=== PATIENT | male | born 1955 | race Two or more races ===

== ENCOUNTER 2020-05-31 21:28 | Inpatient (IN) | payer OTHER ==
[~2020-05-31] VITALS: Ht 167.6 cm; Wt 68.0 kg
--- NOTE | 2020-05-31 21:28 | NUR ---
ED Nurse Note: Patient brought into ED by RA Papa from home c/o hyperglycemia, per patient he has been feeling unwell since friday. patient presents with an elevated oral temp of 103.4 accompanied by abdominal pain that he rates a 5/10 pain, denies any nausea, vomiting, or diarrhea just reports of pressure like pain. patient placed in a cardiac care nurse. will continue to monitor
[2020-05-31 21:30] VITALS: BP 183/84
[2020-05-31] MEDS ORDERED: Acetaminophen 500mg (ES) tab ORAL ONE (21:45)
--- NOTE | 2020-05-31 22:00 | NUR ---
ED Nurse Note: after tylenol 1 gram, patient currently presents with an oral temp of 99.2
[2020-05-31 22:08] LABS: HEMATOCRIT 40.4 % (42.0-52.0); HEMOGLOBIN 13.8 G/DL (14.2-18.0); MEAN CORPUSCULAR VOLUME 92 FL (80-99); PLATELET COUNT 54 K/UL (150-450); RED BLOOD COUNT 4.41 M/UL (4.70-6.10); WHITE BLOOD COUNT 6.8 K/UL (4.8-10.8)
[2020-05-31 22:18] LABS: INR 1.3 (0.9-1.1)
[2020-05-31 22:20] LABS: ANION GAP 11 mmol/L (5-15); BLOOD UREA NITROGEN 17 mg/dL (7-18); CALCIUM 8.9 MG/DL (8.5-10.1); CARBON DIOXIDE 22 MMOL/L (21-32); CHLORIDE 97 MMOL/L (98-107); CREATININE 1.2 MG/DL (0.55-1.30); POTASSIUM 3.9 MMOL/L (3.5-5.1); SODIUM 130 MMOL/L (136-145)
[2020-05-31] MEDS ORDERED: Azithromycin 500 MG in NS 275 ML IV ONE (22:30)
[2020-05-31] MEDS ORDERED: Piperacillin/Tazobactam 3.375 GM in NS 110 ML IVPB ONE (22:30)
--- NOTE | 2020-05-31 22:30 | Emergency Room Report ---
History of Present Illness General Chief Complaint: General Complaint Source: Patient, EMS Present Illness HPI Patient presented via EMS. Apparently he has been ill since Friday. He complains of malaise and also gassiness in his stomach. He has a history of diabetes and takes Metformin 500 mg. It is unclear as to whether he has been taking his medication as no pill bottles were found at the residence. Accu-Chek in the field was 330. Paramedics on transport noted that the patient was febrile. The patient denies nausea, vomiting or diarrhea. He denies dysuria. He denies rashes. He denies chest pain or productive cough. Unknown whether patient was exposed to Covid positive contacts. No sore throat, chest pain, palpitations, dysuria, shortness of breath, depression, anxiety, visual changes, dizziness, headache. Allergies: Coded Allergies: No Known Allergies (Unverified , 05/31/20) COVID-19 Screening Contact w/high risk pt: No Experienced COVID-19 symptoms?: No COVID-19 Testing performed [employer]: No Patient History Past Medical History: see triage record Social History: Denies: smoking Social History Narrative Lives with family Reviewed Nursing Documentation: PMH: Agreed; PSxH: Agreed Nursing Documentation-PMH Past Medical History: No History, Except For Hx Diabetes: Yes Review of Systems All Other Systems: negative except mentioned in HPI Physical Exam Vital Signs Date Time Temp Pulse Resp B/P (MAP) Pulse Ox O2 Delivery O2 Flow Rate FiO2 05/31/20 21:22 100.6 115 18 183/84 (117) 98 Room Air Sp02 EP Interpretation: reviewed, normal General Appearance: no apparent distress, GCS 15, non-toxic Head: normocephalic Eyes: bilateral eye normal inspection, bilateral eye PERRL, bilateral eye EOMI ENT: moist mucus membranes Neck: supple Respiratory: lungs clear, decreased breath sounds - Right Cardiovascular #1: tachycardia Cardiovascular #2: 2+ radial (R) Gastrointestinal: non tender, soft, no guarding, no rebound, other - increased bowel sounds Genitourinary: no CVA tenderness Musculoskeletal: back normal, normal range of motion, gait/station normal Neurologic: alert, oriented x3, grossly normal Psychiatric: mood/affect normal Skin: no rash, other - hot Medical Decision Making Diagnostic Impression: Primary Impression: Sepsis Qualified Codes: A41.9 - Sepsis, unspecified organism Additional Impressions: RLL pneumonia Qualified Codes: J18.9 - Pneumonia, unspecified organism Person under investigation for COVID-19 Apical lung scarring Rule out tuberculosis Hyperglycemia Elevated lactic acid level Pleural effusion, right ER Course Patient presents with hyperglycemia and fever. Differential includes diabetic ketoacidosis, sepsis, pneumonia, urinary tract infection, acute myocardial infarction, COVID-19 amongst others. Patient evaluated with EKG, chest x-ray and labs. Due to hyperglycemia fluid bolus administered. Also Tylenol administered for fever. Abdomen is nonsurgical. Patient placed on cardiac nurse practitioner. EKG sinus tachycardia with minimal strain pattern. No injury. CXR with RLL infiltrate and R apical scarring abdomen x-ray with. Gallstones and stents possibly in portal area. White count normal. Serum bicarbonate is normal which excludes diabetic ketoacidosis. Inflammatory markers elevated. Elevated lactate. Full bolus 30 ml/kg ordered and antibiotics. Sepsis re evaluation 2234 Covid antigen test negative. PCR test ordered. In addition because of chest x-ray Gold interferon test ordered. Patient improved with treatment. Patient signed out to Dr. Carmen for final disposition. Laboratory Tests Test 05/31/20 21:40 05/31/20 22:30 06/01/20 00:48 White Blood Count 6.8 K/UL (4.8-10.8) Red Blood Count 4.41 M/UL (4.70-6.10) L Hemoglobin 13.8 G/DL (14.2-18.0) L Hematocrit 40.4 % (42.0-52.0) L Mean Corpuscular Volume 92 FL (80-99) Mean Corpuscular Hemoglobin 31.2 PG (27.0-31.0) H Mean Corpuscular Hemoglobin Concent 34.1 G/DL (32.0-36.0) Red Cell Distribution Width 14.0 % (11.6-14.8) Platelet Count 54 K/UL (150-450) L Mean Platelet Volume 7.8 FL (6.5-10.1) Neutrophils (%) (Auto) % (45.0-75.0) Lymphocytes (%) (Auto) % (20.0-45.0) Monocytes (%) (Auto) % (1.0-10.0) Eosinophils (%) (Auto) % (0.0-3.0) Basophils (%) (Auto) % (0.0-2.0) Differential Total Cells Counted 100 Neutrophils % (Manual) 71 % (45-75) Lymphocytes % (Manual) 14 % (20-45) L Monocytes % (Manual) 4 % (1-10) Eosinophils % (Manual) 2 % (0-3) Basophils % (Manual) 0 % (0-2) Band Neutrophils 9 % (0-8) H Platelet Estimate Decreased L Platelet Morphology Normal Prothrombin Time 13.9 SEC (9.30-11.50) H Prothrombin Time INR 1.3 (0.9-1.1) H Activated Partial Thromboplast Time 31 SEC (23-33) D-Dimer 1.63 mg/L FEU (0.00-0.49) H Sodium Level 130 MMOL/L (136-145) L Potassium Level 3.9 MMOL/L (3.5-5.1) Chloride Level 97 MMOL/L (98-107) L Carbon Dioxide Level 22 MMOL/L (21-32) Anion Gap 11 mmol/L (5-15) Blood Urea Nitrogen 17 mg/dL (7-18) Creatinine 1.2 MG/DL (0.55-1.30) Estimated Glomerular Filtration Rate > 60 mL/min (>60) Glucose Level 269 MG/DL (74-106) H Lactic Acid Level 2.90 mmol/L (0.4-2.0) H Pending Calcium Level 8.9 MG/DL (8.5-10.1) Ferritin 273 NG/ML (8-388) Total Bilirubin 1.7 MG/DL (0.2-1.0) H Direct Bilirubin 0.7 MG/DL (0.0-0.3) H Aspartate Amino Transferase (AST) 40 U/L (15-37) H Alanine Aminotransferase (ALT) 26 U/L (12-78) Alkaline Phosphatase 81 U/L (46-116) Lactate Dehydrogenase 334 U/L (81-234) H Total Creatine Kinase 488 U/L (26-308) H Creatine Kinase MB < 0.5 NG/ML (0.0-3.6) Creatine Kinase MB Relative Index 0.1 Troponin I 0.020 ng/mL (0.000-0.056) C-Reactive Protein, Quantitative 13.4 mg/dL (0.00-0.90) H Pro-B-Type Natriuretic Peptide 179 pg/mL (0-125) H Total Protein 7.6 G/DL (6.4-8.2) Albumin 2.8 G/DL (3.4-5.0) L Globulin 4.8 g/dL Albumin/Globulin Ratio 0.6 (1.0-2.7) L Lipase 168 U/L (73-393) Urine Color Yellow Urine Appearance Clear Urine pH 5 (4.5-8.0) Urine Specific [place] 1.015 (1.005-1.035) Urine Protein 3+ (NEGATIVE) H Urine Glucose (UA) 4+ (NEGATIVE) H Urine Ketones Negative (NEGATIVE) Urine Blood 3+ (NEGATIVE) H Urine Nitrite Negative (NEGATIVE) Urine Bilirubin Negative (NEGATIVE) Urine Urobilinogen 1 MG/DL (0.0-1.0) H Urine Leukocyte Esterase Negative (NEGATIVE) Urine RBC 0-2 /HPF (0 - 0) H Urine WBC 0 /HPF (0 - 0) Urine Squamous Epithelial Cells None /LPF (NONE/OCC) Urine Bacteria None /HPF (NONE) Microbiology Date/Time Source Procedure Growth Status 05/31/20 21:40 Nasopharynx SARS-CoV-2 Antigen (Rapid)(ANIKA) - Final Complete EKG Diagnostic Results Rate: tachycardiac Rhythm: NSR ST Segments: no acute changes Rhythm Strip Diag. Results EP Interpretation: yes Rhythm: no PVC's, no ectopy, other - ST Chest X-Ray Diagnostic Results Chest X-Ray Diagnostic Results : Chest X-Ray Ordered: Yes # of Views/Limited/Complete: 1 View Indication: Other EP Interpretation: Yes Interpretation: no pneumothorax, other - RLL infiltrate and RUL scarring Impression: Other Electronically Signed by: Electronically signed by Benoit Kebede MD Other X-Ray Diagnostic Results Other X-Ray Diagnostic Results : # of Views/Limited Vs Complete: 2 View Indication: Other EP Interpretation: Yes Interpretation: nonspecific bowel gas, no sbo, other - gall stones, NSBGP, stent RUQ Impression: Other Electronically Signed by: Electronically signed by Benoit Kebede MD Last Vital Signs Date Time Temp Pulse Resp B/P (MAP) Pulse Ox O2 Delivery O2 Flow Rate FiO2 05/31/20 21:30 115 18 Room Air 05/31/20 21:30 103.4 183/84 98 Status: improved Disposition: ADMITTED INPATIENT Condition: Serious Referrals: NON PHYSICIAN (PCP) Benoit Kebede MD May 31, 2020 22:30
[2020-05-31 22:35] LABS: ALANINE AMINOTRANSFERASE 26 U/L (12-78); ALBUMIN 2.8 G/DL (3.4-5.0); ALBUMIN/GLOBULIN RATIO 0.6 (1.0-2.7); ALKALINE PHOSPHATASE 81 U/L (46-116); ASPARTATE AMINO TRANSFERASE 40 U/L (15-37); BILIRUBIN,TOTAL 1.7 MG/DL (0.2-1.0); CKMB < 0.5 NG/ML (0.0-3.6); CREATINE KINASE 488 U/L (26-308); FERRITIN 273 NG/ML (8-388); LACTATE DEHYDROGENASE 334 U/L (81-234)
[2020-05-31 22:39] LABS: BILIRUBIN,DIRECT 0.7 MG/DL (0.0-0.3)
[2020-05-31 23:08] LABS: APPEARANCE,URINE CLEAR; BILIRUBIN, URINE NEGATIVE (NEGATIVE); GLUCOSE, URINE (UA) 4+ (NEGATIVE); KETONES,URINE NEGATIVE (NEGATIVE); LEUKOCYTE ESTERASE ,URINE NEGATIVE (NEGATIVE); NITRITE,URINE NEGATIVE (NEGATIVE); PH,URINE 5 (4.5-8.0); PROTEIN,URINE 3+ (NEGATIVE); UROBILINOGEN,URINE 1 MG/DL (0.0-1.0)
[2020-05-31 23:15] VITALS: BP 152/73
[2020-05-31 23:26] LABS: COLOR,URINE YELLOW
[2020-06-01] VITALS (8 sets, daily range): BP systolic 147–170; BP diastolic 75–88
--- NOTE | 2020-06-01 00:47 | Emergency Room Report ---
Physical Exam Vital Signs Date Time Temp Pulse Resp B/P (MAP) Pulse Ox O2 Delivery O2 Flow Rate FiO2 05/31/20 21:22 100.6 115 18 183/84 (117) 98 Room Air Sp02 EP Interpretation: reviewed, normal Medical Decision Making Diagnostic Impression: Primary Impression: Sepsis Additional Impressions: Person under investigation for COVID-19 RLL pneumonia Qualified Codes: J18.9 - Pneumonia, unspecified organism Hyperglycemia Apical lung scarring Rule out tuberculosis History of TB (tuberculosis) ER Course I, Dr Steff Carmen, have assumed care of the patient. Initial workup, his tory, and physical performed by previous provider has been reviewed by myself and I have performed my own physical exam of the patient. Patient is a 65-year-old [place] male with past medical history of TB infection (s/p [place] 2011) [id number] diabetes brought in by ambulance for cough. Differential diagnosis includes sepsis / severe sepsis , cellulitis UTI, pneu monia , viral syndrome, gastroenteritis, emergent abdominal infection, among others. Patient was initially febrile and tachycardic, thus meeting SIRS criteria. Labs demonstrate bands of 9, CRP elevation of 13.4, lactic 2.9. CBC demonstrates thrombocytopenia. He is dehydrated with a CK of 48. There is no evidence of DKA or HHS. Bicarb is 22. UA is negative for UTI CXR demonstrates right lower lobe pneumonia with apical scarring, consistent with previous TB infection. Sepsis bundle initiated on arrival. Blood cultures, lactate drawn. Lactate was elevated , patient was given 30 cc/kg IV fluids by bolus. Empiric antibiotics were started. Patient will be admitted to the hospital for further care and evaluation. I spoke with Dr. Kruse, and reviewed the patients presentation, workup, results, and treatment. They will admit the patient for further care and evaluation, and assume care of the patient at this time. Rhythm Strip Diag. Results Rhythm Strip Time: 00:46 EP Interpretation: yes Rate: 102 Rhythm: no PVC's, no ectopy Chest X-Ray Diagnostic Results Chest X-Ray Diagnostic Results : ANNA Langford Text Chest X-Ray: Views: [ 1 ] view(s) Indication: SOB Findings: Right lower lobe pneumonia. Right apical scarring, interstitial infiltrate, no pneumothorax Impression: Pneumonia The X-ray(s) were independently viewed and interpreted contemporaneously Electronically signed by Steff sifuentes DO Reevaluation Time: 00:00 Last Vital Signs Date Time Temp Pulse Resp B/P (MAP) Pulse Ox O2 Delivery O2 Flow Rate FiO2 05/31/20 21:22 100.6 115 18 183/84 (117) 98 Room Air Status: improved Disposition: ADMITTED INPATIENT Admit Decision Time: 00:00 Condition: Serious Referrals: NON PHYSICIAN (PCP) Steff Carmen D.O. Jun 01, 2020 00:47
[2020-06-01] MEDS ORDERED: METFORMIN HCL500 M1 ORAL (00:57)
--- NOTE | 2020-06-01 01:02 | NUR ---
ED Nurse Note: oral temp of 100.4. ERMD aware and notified, will carry out meds as ordered
[2020-06-01] MEDS ORDERED: Acetaminophen 500mg (ES) tab ORAL ONE ×2 (01:05→01:15)
--- NOTE | 2020-06-01 01:40 | NUR ---
Pte in bed in comfortable position , no fever at this at this time. Will continue to monitor.
--- NOTE | 2020-06-01 04:00 | NUR ---
Pte in bed alert and stable , vital signs taken and reported . Pte remains attached to the monitor , no pain or disccomfort verbalized. No fever . Pte has being monitoring for any hypoglycemic sign. All medications were given to the patient without any adverse effect. Will continue to monitor the patient.
--- NOTE | 2020-06-01 06:00 | NUR ---
Pte in bed stable . Pte has being coughing during the shift. Pte attached to the monitor. Morning labs were done. Safety and comfort measures taken . Will continue to monitor the patient during the shift.
--- NOTE | 2020-06-01 08:00 | NUR ---
pt has completed breakfast and resting comfortably. vitals updated at this time. pt has no complaints at this time.
[2020-06-01] MEDS ORDERED: Heparin 5000 units/ml inj SUBQ SCH (09:00)
[2020-06-01] MEDS: cefTRIAXone 1 GM in D5W 55 ML IVPB SCH (09:00)
--- NOTE | 2020-06-01 09:14 | History and Physical Report ---
DATE OF ADMISSION: 05/31/2020 CHIEF COMPLAINT: Pneumonia. HISTORY OF PRESENT ILLNESS: The patient is a 65-year-old male. He has a prior history of tuberculosis, status post treatment, who presents with complaints of one week progressive cough and shortness of breath. According to the patient, he was well until a week ago when he developed worsening shortness of breath and cough. In the emergency room, his rapid COVID test was negative. Chest x-ray showed a right lower lobe infiltrate. The patient has been started on broad-spectrum IV antibiotics. He is now admitted for further evaluation and care. PAST MEDICAL HISTORY: None. PAST SURGICAL HISTORY: None. CURRENT MEDICATIONS: None. FAMILY HISTORY: None. SOCIAL HISTORY: Negative for tobacco, ethanol, or drugs. REVIEW OF SYSTEMS: GENERAL: No fevers or chills. HEENT: No headaches or visual changes. CARDIOPULMONARY: No chest pain. Positive shortness of breath and cough. GASTROINTESTINAL: No nausea or vomiting. GENITOURINARY: No urgency or frequency. MUSCULOSKELETAL: No joint pain or swelling. NEUROLOGIC: No history of seizures. PHYSICAL EXAMINATION: VITAL SIGNS: Temperature 100.4, pulse 112, respirations 16, blood pressure 163/84. GENERAL: The patient is well developed, in no apparent distress. HEART: Regular rate and rhythm. LUNGS: Clear except for diminished breath sounds at the bases. ABDOMEN: Soft, nontender, nondistended. EXTREMITIES: Without clubbing, cyanosis, or edema. LABORATORY DATA: Labs were reviewed. ASSESSMENT: This is a 65-year-old male, admitted with complaints of pneumonia. PROBLEM LIST: 1. Community-acquired pneumonia. 2. Lactic acidosis. 3. Hyponatremia. 4. Questionable history of diabetes. PLAN: IV hydration. IV antibiotics. Follow up pending cultures. Check an A1c. We will monitor blood sugars. Repeat COVID PCR will be ordered. Sudeep Kruse M.D. DR: GEOVANY JOB#: [id number] CC:
--- NOTE | 2020-06-01 12:18 | Diagnostic Imaging Report ---
EXAM: CT CT Chest no Contrast CLINICAL HISTORY: Cough. TECHNIQUE: Axial images obtained through the chest without contrast. All CT scans at this facility are performed using dose modulation techniques as appropriate to a performed exam including the following: automated exposure control with adjustment of the mA and/or kV according to patient size. RADIATION DOSE: CTDIvol: 5.5 mGy DLP: 205.6 mGy-cm Dose information generated by the CT scanner is available in PACS. COMPARISON: Chest x-ray 05/31/2020 FINDINGS: Study limited due to motion artifact. There is redemonstration of an area of bronchiectasis and scarring in the right upper lobe. Adjacent pleural thickening noted. Mild hazy density is noted posterior left lung base, atelectasis versus early infiltrate. There appears to be a chronic crescentic pleural collection noted in the right posterior lateral lung base with dense rim calcifications. This may be related to an old hemothorax. Cardiac and mediastinal structures are within normal limits. There is no pathologic size adenopathy. Images through the upper abdomen remarkable for cirrhotic liver with apparent TIPS shunt in place. There is splenomegaly. IMPRESSION: RIGHT UPPER LOBE SCARRING AND BRONCHIECTASIS WITH ADJACENT PLEURAL THICKENING. CRESCENTIC PLEURAL COLLECTION WITH RIM CALCIFICATION IN THE POSTERIOR LATERAL RIGHT LUNG BASE. THIS IS LIKELY FROM AN OLD HEMOTHORAX. MILD PERIPHERAL HAZY DENSITIES POSTERIOR LEFT LUNG BASE. ATELECTASIS VERSUS EARLY INFILTRATE. CIRRHOTIC LIVER WITH TIPS SHUNT. SPLENOMEGALY.
--- NOTE | 2020-06-01 13:08 | Diagnostic Imaging Report ---
EXAM: XRAY Abdomen 1v HISTORY: Reason For Exam: ABD PAIN COMPARISON: None. TECHNIQUE: Frontal view of the abdomen obtained. FINDINGS: There is a nonobstructed bowel gas pattern. There is a tips shunt in the right upper quadrant. Multiple gallstones noted. There is no sign of free air. Pleural calcifications noted right lung base. IMPRESSION: GALLSTONES. TIPS SHUNT IN THE RIGHT UPPER QUADRANT.
--- NOTE | 2020-06-01 13:10 | Diagnostic Imaging Report ---
Procedure: XRAY Chest 1v Reason for study: Shortness of breath. Comparison films: None. FINDINGS: A single one view chest is obtained. Vascularity is normal. There is right upper lobe scarring, bronchiectasis and pleural thickening. Hazy densities right lung base also noted. Cardiac and mediastinal silhouette are within normal limits. Right-sided pleural calcifications demonstrated likely related to old hemothorax. The bony thorax appear unremarkable. IMPRESSION: Postovulatory changes of the right lung with right upper lobe scarring, bronchiectasis and pleural thickening. Pleural calcifications right lung base suggestive of prior hemothorax.
--- NOTE | 2020-06-01 13:43 | NUR ---
pt is resting comfortably, vital signs updated at this time. charge nurse notified of need for lunch tray.
--- NOTE | 2020-06-01 16:56 | NUR ---
updated vitals pt spiked a temp, 650 of tylenol given
--- NOTE | 2020-06-01 19:16 | Cardiology Report ---
APPROVED REPORT EKG Measurement Heart [id number] AL [id number] [id number] <Conclusion> Sinus tachycardia Left ventricular hypertrophy with repolarization abnormality Abnormal ECG
--- NOTE | 2020-06-01 20:40 | NUR ---
TRANSFER TO FLOOR: Patient transferred to Telemetry as ordered, per Dr. Kruse. Report given to GIN Salamanca. patient transferred to floor accompanied by RN
[2020-06-01] MEDS: Azithromycin 250mg tab ORAL SCH (20:47)
--- NOTE | 2020-06-01 20:50 | NUR ---
NURSE NOTES: Patient received from GIN Montelongo. Patient is transferred to floor with no issues. Patient is awake, alert and oriented x 4. Patient is on room air with no signs of acute respiratory distress noted. Patient has no complaints as of the moment. Patient has a right 18 gauge IV on his right AC with NS running at 75 ml/hr. Discussed belongings with the RN. Bed is in the lowest position and locked, call light within reach. Will continue to monitor.
--- NOTE | 2020-06-01 23:40 | NUR ---
NURSE NOTES: Contacted and notified Dr. Bernard regarding patient's episode of sinus tachycardia with a heart rate of 140s to 150s. EKG performed. Awaiting for call back.
[2020-06-02] VITALS: BP 151/89
[2020-06-02 04:53] VITALS: BP 141/78
[2020-06-02 06:58] LABS: ANION GAP 8 mmol/L (5-15); BLOOD UREA NITROGEN 13 mg/dL (7-18); CALCIUM 7.1 MG/DL (8.5-10.1); CARBON DIOXIDE 26 MMOL/L (21-32); CHLORIDE 104 MMOL/L (98-107); CREATININE 1.1 MG/DL (0.55-1.30); POTASSIUM 3.1 MMOL/L (3.5-5.1); SODIUM 138 MMOL/L (136-145)
[2020-06-02 07:08] LABS: ALANINE AMINOTRANSFERASE 19 U/L (12-78); ALBUMIN 2.1 G/DL (3.4-5.0); ALBUMIN/GLOBULIN RATIO 0.5 (1.0-2.7); ALKALINE PHOSPHATASE 65 U/L (46-116); ASPARTATE AMINO TRANSFERASE 36 U/L (15-37); BILIRUBIN,TOTAL 1.5 MG/DL (0.2-1.0)
--- NOTE | 2020-06-02 07:22 | NUR ---
NURSE HAND-OFF REPORT: Important Events on Shift:[Patient had a sinus tachycardia episode, heart rate in 140-150s. Notified Dr. Bernard, Tylenol ordered due to fever per Dr. Bernard. Now back to SR. ] Patient Status: [Stable] Diet: [Regular diet] Pending Orders: [] Pending Results/Labs:[] Pending MD notification:[] Latest Vital Signs: Temperature 98.3 , Pulse 96 , B/P 141 /78 , Respiratory Rate 20 , O2 SAT 98 , Room Air, O2 Flow Rate . Vital Sign Comment: [] EKG Rhythm: Sinus Rhythm Rhythm change?: Y MD Notified?: N - MD Response: Latest Cheung Fall Score: 30 Fall Risk: Medium Risk Safety Measures: Call light Within Reach, Bed Alarm Zone 1, Side Rails Side Rails x2, Bed position Low and Locked. Fall Precautions: Patient Fall Education Report given to [GIN Moraes].
[2020-06-02 07:33] LABS: BILIRUBIN,DIRECT 0.5 MG/DL (0.0-0.3)
[2020-06-02 08:00] VITALS: BP 183/100
[2020-06-02 10:11] LABS: HEMOGLOBIN 13.8 G/DL (14.2-18.0); MEAN CORPUSCULAR VOLUME 89 FL (80-99); PLATELET COUNT 60 K/UL (150-450); RED BLOOD COUNT 4.47 M/UL (4.70-6.10); WHITE BLOOD COUNT 8.1 K/UL (4.8-10.8)
[2020-06-02] MEDS: cefTRIAXone 1 GM in D5W 55 ML IVPB SCH (10:29)
[2020-06-02 12:18] VITALS: BP 121/67
--- NOTE | 2020-06-02 14:16 | General Progress Note ---
Subjective ROS Limited/Unobtainable: No Constitutional: Reports: malaise, weakness HEENT: Reports: no symptoms Cardiovascular: Reports: no symptoms Respiratory: Reports: cough, shortness of breath Gastrointestinal/Abdominal: Reports: no symptoms Genitourinary: Reports: no symptoms Neurologic/Psychiatric: Reports: no symptoms Endocrine: Reports: no symptoms Hematologic/Lymphatic: Reports: no symptoms Allergies: Coded Allergies: No Known Allergies (Unverified , 05/31/20) All Systems: reviewed and negative except above Subjective No new complaints. Stable on oxygen. Denies chest pain or shortness of breath. Covid PCR pending. Remains IV antibiotics. CT noted. Has scarring and a questionable left basilar infiltrate Objective Last 24 Hour Vital Signs Date Time Temp Pulse Resp B/P (MAP) Pulse Ox O2 Delivery O2 Flow Rate FiO2 06/02/20 12:47 103 06/02/20 12:18 97.9 103 20 121/67 (85) 98 06/02/20 10:25 184/99 06/02/20 10:06 97.9 06/02/20 08:00 102.9 120 20 183/100 (127) 98 06/02/20 08:00 Room Air 06/02/20 08:00 105 06/02/20 04:53 98.3 96 20 141/78 (99) 98 06/02/20 04:00 99 06/02/20 00:00 142 06/02/20 00:00 100.0 129 20 151/89 (109) 98 06/01/20 21:00 Room Air 06/01/20 20:40 100.2 103 18 134/82 99 Room Air 06/01/20 20:00 106 06/01/20 20:00 98.4 100 24 158/76 (103) 100 06/01/20 19:58 100.2 06/01/20 19:02 Room Air 06/01/20 18:09 101.0 06/01/20 17:00 102.0 122 18 170/80 99 Room Air 06/01/20 14:33 99.8 120 18 167/77 98 Room Air Intake and Output 06/01/20 06/02/20 18:59 06:59 Intake Total 3120 ml Output Total 600 ml Balance 2520 ml Intake Oral 120 ml IV Total 3000 ml Output Urine Total 600 ml # Voids 5 # Bowel Movements 1 Laboratory Tests 06/02/20 05:48: Sodium Level 138, Potassium Level 3.1L, Chloride Level 104, Carbon Dioxide Level 26, Anion Gap 8, Blood Urea Nitrogen 13, Creatinine 1.1, Estimat Glomerular Filtration Rate > 60, Glucose Level 121#H, Calcium Level 7.1#L, Total Bilirubin 1.5H, Direct Bilirubin 0.5H, Aspartate Amino Transf (AST/SGOT) 36, Alanine Aminotransferase (ALT/SGPT) 19, Alkaline Phosphatase 65, Total Protein 6.1L, Albumin 2.1L, Globulin 4.0, Albumin/Globulin Ratio 0.5L 06/02/20 09:50: White Blood Count 8.1, Red Blood Count 4.47L, Hemoglobin 13.8L, Hematocrit 40.0L , Mean Corpuscular Volume 89, Mean Corpuscular Hemoglobin 30.9, Mean Corpuscular Hemoglobin Concent 34.5, Red Cell Distribution Width 14.0, Platelet Count 60L, Mean Platelet Volume 10.0, Neutrophils (%) (Auto) , Lymphocytes (%) (Auto) , Monocytes (%) (Auto) , Eosinophils (%) (Auto) , Basophils (%) (Auto) , Differential Total Cells Counted 100, Neutrophils % (Manual) 68, Lymphocytes % (Manual) 15L, Monocytes % (Manual) 5, Eosinophils % (Manual) 9H, Basophils % (M anual) 0, Band Neutrophils 3, Platelet Estimate DecreasedL, Platelet Morphology Normal, Anisocytosis 1+ Height (Feet): 5 Height (Inches): 6.00 Weight (Pounds): 150 General Appearance: WD/WN Cardiovascular: normal peripheral pulses, normal rate, regular rhythm Respiratory/Chest: chest wall non-tender, lungs clear, normal breath sounds, no respiratory distress Abdomen: normal bowel sounds, non tender, soft Edema: no edema noted Leg (L), no edema noted Leg (R) Assessment/Plan Problem List: (1) Pleural effusion, right ICD Codes: J90 - Pleural effusion, not elsewhere classified SNOMED: 54461399 (2) History of TB (tuberculosis) ICD Codes: Z86.11 - Personal history of tuberculosis SNOMED: 410072499 (3) Apical lung scarring ICD Codes: J98.4 - Other disorders of lung SNOMED: 41918038 (4) RLL pneumonia ICD Codes: J18.9 - Pneumonia, unspecified organism SNOMED: 141700558 Qualifiers: Qualified Codes: J18.9 - Pneumonia, unspecified organism (5) Person under investigation for COVID-19 ICD Codes: Z20.822 - Contact with and (suspected) exposure to COVID-19 SNOMED: 377611512 (6) Sepsis ICD Codes: A41.9 - Sepsis, unspecified organism SNOMED: 37518421 Qualifiers: Qualified Codes: A41.9 - Sepsis, unspecified organism Status: stable Assessment/Plan: Continue IV antibiotics Follow-up pending cultures Wean O2 Await Covid PCR Discharge planning tomorrow if cinically improved Sudeep Kruse MD Jun 02, 2020 14:16
[2020-06-02 17:00] VITALS: BP 136/94
--- NOTE | 2020-06-02 17:02 | NUR ---
INSURANCE CLINICALS FAXED TO [facility] & [phone]
--- NOTE | 2020-06-02 17:07 | NUR ---
NURSE NOTES: supply tech notified nurse of heart rate in the 160s. Nurse went in pt room to find pt standing, having bm on floor, and his entire body shaking vigorously. Once pt in bed. Nurse noticed pt somewhat confused with simple commands. BP 220/108, temp 101.9, and heart rate still in 150s at this point. PRN tylenol given and clonodine given while Primary physician was contacted. Orders were put in. EKG done showing sinus tach.
--- NOTE | 2020-06-02 19:51 | NUR ---
NURSE NOTES: Patient received from GIN Moraes. Patient is awake, alert and oriented x 4. Patient is very talkative, no complaints as of the moment. Patient noted to have no IV line inserted and no fluids running, will insert new IV line. Patient is in room air with no signs of acute respiratory distress noted. Bedside commode in bed. Bed is in the lowest position and locked, call light within reach. Will continue to monitor.
[2020-06-02 20:00] VITALS: BP 126/74
[2020-06-02] MEDS: Azithromycin 250mg tab ORAL SCH (21:15)
[2020-06-03] VITALS: BP 105/57
--- NOTE | 2020-06-03 01:50 | NUR ---
NURSE NOTES: Patient multiple bowel movement of loose stools. Stool collected for C. diff and fecal occult blood test. Stool has been sample sent down to the lab.
[2020-06-03 04:00] VITALS: BP 110/54
--- NOTE | 2020-06-03 07:25 | NUR ---
NURSE NOTES: Patient received from GIN Catalan. Patient is awake, alert and oriented x 4. Able to follow and understand Hungarian. speaks tagalog. ON RA and sating >93%. PIV access patent and intact. no signs of acute cardio- respiratory distress noted. NO c/o pain/discomfort noted. Bedside commode available. Bed is in the lowest position and locked, alarm engaged and siderails are upx3. call light within reach. Will continue to monitor.
--- NOTE | 2020-06-03 07:40 | NUR ---
NURSE HAND-OFF REPORT: Important Events on Shift:[Patient had bowel movement six time. Sent stool cultures in lab. Fecal occult is positive, Dr. Kruse is notified and aware.] Patient Status: [Stable] Diet: [Regular diet] Pending Orders: [] Pending Results/Labs:[] Pending MD notification:[] Latest Vital Signs: Temperature 98.0 , Pulse 100 , B/P 110 /54 , Respiratory Rate 18 , O2 SAT 98 , Room Air, O2 Flow Rate . Vital Sign Comment: [] EKG Rhythm: Sinus Tachycardia Rhythm change?: Y MD Notified?: N - MD Response: Latest Cheung Fall Score: 30 Fall Risk: Medium Risk Safety Measures: Call light Within Reach, Bed Alarm Zone 1, Side Rails Side Rails x2, Bed position Low and Locked. Fall Precautions: Patient Fall Education Report given to [GIN Catalan].
--- NOTE | 2020-06-03 08:00 | NUR ---
Patient had an episode of Rapid A-Fib w/ RVR rate 165, awake alert, denies chest pain, Dr. Kruse made aware. no Cardio consult yet.
[2020-06-03 08:42] LABS: HEMATOCRIT 37.9 % (42.0-52.0); HEMOGLOBIN 12.9 G/DL (14.2-18.0); MEAN CORPUSCULAR VOLUME 91 FL (80-99); PLATELET COUNT 56 K/UL (150-450); RED BLOOD COUNT 4.19 M/UL (4.70-6.10); RED CELL DISTRIBUTION WIDTH 13.8 % (11.6-14.8); WHITE BLOOD COUNT 9.3 K/UL (4.8-10.8)
[2020-06-03 08:59] VITALS: BP 130/68
[2020-06-03 09:07] LABS: ALANINE AMINOTRANSFERASE 23 U/L (12-78); ALBUMIN 2.1 G/DL (3.4-5.0); ALBUMIN/GLOBULIN RATIO 0.5 (1.0-2.7); ALKALINE PHOSPHATASE 77 U/L (46-116); ANION GAP 9 mmol/L (5-15); ASPARTATE AMINO TRANSFERASE 35 U/L (15-37); BILIRUBIN,TOTAL 1.6 MG/DL (0.2-1.0); BLOOD UREA NITROGEN 18 mg/dL (7-18); CALCIUM 6.9 MG/DL (8.5-10.1); CARBON DIOXIDE 23 MMOL/L (21-32); CHLORIDE 104 MMOL/L (98-107); CREATININE 1.2 MG/DL (0.55-1.30); POTASSIUM 3.6 MMOL/L (3.5-5.1); SODIUM 136 MMOL/L (136-145)
[2020-06-03 09:08] LABS: BILIRUBIN,DIRECT 0.6 MG/DL (0.0-0.3)
--- NOTE | 2020-06-03 09:36 | NUR ---
CASE MANAGEMENT:REVIEW 06/03/20 SI: SEPSIS. PNEUMONIA. PUI H/O TB. COVID NEGATIVE 98.6 109 18 130/68 99% ON RA H/H-12.9/37.9 PLT-56 GLUCOSE+244 CA-6.9 IS: IV ROCEPHIN Q24 IVF@125/HR AZITHROMYCIN PO QD LOPRESSOR PO Q12 PEPCID PO QD : TELEMETRY STATUS DCP: FROM HOME
[2020-06-03] MEDS: cefTRIAXone 1 GM in D5W 55 ML IVPB SCH (09:59)
--- NOTE | 2020-06-03 11:39 | NUR ---
NURSE NOTES: INFORMED DR SILVA REGARDING DIET; PATIENT HAS HISTORY OF DM AND ADMITTED WITH HYPERGLYCEMIA AND NO ACCUCHECKS AND SLIDING SCALE. PATIENT HAS MULTIPLE DIARRHEA. AWAITING FOR A RESPONSE FROM PMD. WILL CONT TO MONITOR. Addendum: 06/03/20 at 1158 by KHADIJAH LUQUE LVN NEW ORDER OBTAINED FOR ANTIDIARRHEAL. WILL CONT TO MONITOR
[2020-06-03] MEDS ORDERED: Lomotil 2.5mg tab ORAL PRN (11:45)
[2020-06-03 11:48] VITALS: BP 150/99
--- NOTE | 2020-06-03 13:55 | General Progress Note ---
Subjective ROS Limited/Unobtainable: No Constitutional: Reports: malaise, weakness HEENT: Reports: no symptoms Cardiovascular: Reports: no symptoms Respiratory: Reports: cough, shortness of breath Gastrointestinal/Abdominal: Reports: no symptoms Genitourinary: Reports: no symptoms Neurologic/Psychiatric: Reports: no symptoms Endocrine: Reports: no symptoms Hematologic/Lymphatic: Reports: no symptoms Allergies: Coded Allergies: No Known Allergies (Unverified , 05/31/20) All Systems: reviewed and negative except above Subjective no change. decrease cough. +diarrhea. intermittent svt. Objective Last 24 Hour Vital Signs Date Time Temp Pulse Resp B/P (MAP) Pulse Ox O2 Delivery O2 Flow Rate FiO2 06/03/20 12:13 114 06/03/20 11:48 98.6 109 20 150/99 (116) 98 06/03/20 09:18 Room Air 06/03/20 08:59 98.6 109 18 130/68 (88) 99 108 06/03/20 08:16 108 130/68 06/03/20 08:00 109 06/03/20 04:00 111 06/03/20 04:00 98.0 100 18 110/54 (72) 98 06/03/20 00:00 82 06/03/20 00:00 98.2 82 20 105/57 (73) 98 06/02/20 21:15 105 126/74 06/02/20 21:00 Room Air 06/02/20 20:00 99.7 105 18 126/74 (91) 98 06/02/20 20:00 104 06/02/20 18:55 Room Air 06/02/20 17:00 99.7 135 20 136/94 (108) 98 06/02/20 16:45 134 136/94 06/02/20 16:34 208/120 06/02/20 16:00 124 Intake and Output 06/02/20 06/03/20 19:00 07:00 Intake Total 600 ml 440 ml Output Total 600 ml 600 ml Balance 0 ml -160 ml Intake Oral 600 ml 440 ml Output Urine Total 600 ml 600 ml # Bowel Movements 7 7 Laboratory Tests 06/03/20 01:45: Stool Occult Blood Positive 06/03/20 08:20: White Blood Count 9.3, Red Blood Count 4.19L, Hemoglobin 12.9L, Hematocrit 37.9L , Mean Corpuscular Volume 91, Mean Corpuscular Hemoglobin 30.7, Mean Corpuscular Hemoglobin Concent 33.9, Red Cell Distribution Width 13.8, Platelet Count 56L, Mean Platelet Volume 10.2H, Neutrophils (%) (Auto) , Lymphocytes (%) (Auto) , Monocytes (%) (Auto) , Eosinophils (%) (Auto) , Basophils (%) (Auto) , Differential Total Cells Counted 100, Neutrophils % (Manual) 77H, Lymphocytes % (Manual) 7L, Monocytes % (Manual) 8, Eosinophils % (Manual) 8H, Basophils % (Manual) 0, Band Neutrophils 0, Platelet Estimate DecreasedL, Platelet Morphology Normal, Red Blood Cell Morphology Normal, Sodium Level 136, Potassium Level 3.6, Chloride Level 104, Carbon Dioxide Level 23, Anion Gap 9, Blood Urea Nitrogen 18, Creatinine 1.2, Estimat Glomerular Filtration Rate > 60, Glucose Level 244#H, Calcium Level 6.9L, Total Bilirubin 1.6H, Direct Bilirubin 0.6H, Aspartate Amino Transf (AST/SGOT) 35, Alanine Aminotransferase (ALT/SGPT) 23, Alkaline Phosphatase 77, Total Protein 6.1L, Albumin 2.1L, Globulin 4.0, Albumin/Globulin Ratio 0.5L Height (Feet): 5 Height (Inches): 6.00 Weight (Pounds): 150 Objective General Appearance: WD/WN Cardiovascular: normal peripheral pulses, normal rate, regular rhythm Respiratory/Chest: chest wall non-tender, lungs clear, normal breath sounds, no respiratory distress Abdomen: normal bowel sounds, non tender, soft Edema: no edema noted Leg (L), no edema noted Leg (R) Assessment/Plan Problem List: (1) Pleural effusion, right ICD Codes: J90 - Pleural effusion, not elsewhere classified SNOMED: 71171462 (2) History of TB (tuberculosis) ICD Codes: Z86.11 - Personal history of tuberculosis SNOMED: 138989226 (3) Apical lung scarring ICD Codes: J98.4 - Other disorders of lung SNOMED: 05731480 (4) RLL pneumonia ICD Codes: J18.9 - Pneumonia, unspecified organism SNOMED: 172342101 Qualifiers: Qualified Codes: J18.9 - Pneumonia, unspecified organism (5) Person under investigation for COVID-19 ICD Codes: Z20.822 - Contact with and (suspected) exposure to COVID-19 SNOMED: 691630494 (6) Sepsis ICD Codes: A41.9 - Sepsis, unspecified organism SNOMED: 86971266 Qualifiers: Qualified Codes: A41.9 - Sepsis, unspecified organism Status: stable Assessment/Plan: Continue IV antibiotics Follow-up pending cultures Wean O2 titrate bp rx/cardiac rx reepat cxr Discharge planning tomorrow if cinically improved Sudeep Kruse MD Jun 03, 2020 13:55
[2020-06-03 15:57] VITALS: BP 129/69
--- NOTE | 2020-06-03 16:42 | NUR ---
NURSE NOTES: administered tylenol 650mg for temp 100.2. will cont to monitor.
[2020-06-03] MEDS ORDERED: Vancomycin 1gm/D5W 275ml IVPB ONE ×2 (18:00)
--- NOTE | 2020-06-03 18:56 | NUR ---
NURSE HAND-OFF REPORT: Important Events on Shift:[medicated with tylenol for fever. no s/s of allergies for vanco] Patient Status: [calm and comfortable] Diet: [reg] Pending Orders: [] Pending Results/Labs:[] Pending MD notification:[] Latest Vital Signs: Temperature 99.1 , Pulse 108 , B/P 129 /69 , Respiratory Rate 20 , O2 SAT 98 , Room Air, O2 Flow Rate . Vital Sign Comment: [] EKG Rhythm: Sinus Tachycardia Rhythm change?: N MD Notified?: N - MD Response: Latest Cheung Fall Score: 30 Fall Risk: Medium Risk Safety Measures: Call light Within Reach, Bed Alarm Zone 2, Side Rails Side Rails x3, Bed position Low and Locked. Fall Precautions: Patient Fall Education Report given to [gho].
--- NOTE | 2020-06-03 19:30 | NUR ---
NURSE NOTES: Receive a report from SEJAL Marquez. Pt is awake and alert. No acute distress noted. No SOB noted. Denies pain. No chilling or febrile sensation. IV is running as ordered with ATB via left wrist. No dizziness noted. Provide fall precautions. Call light within reach. Will continue to monitor.
[2020-06-03 20:00] VITALS: BP 119/72
[2020-06-03] MEDS: Azithromycin 250mg tab ORAL SCH (21:03)
[2020-06-03] MEDS: Piperacillin/Tazobactam 3.375 GM in NS 110 ML IVPB SCH (21:32)
--- NOTE | 2020-06-03 23:45 | NUR ---
NURSE NOTES: DOCUMENT CONTROL MANAGER reported pt's SOB and wheezing. Spo2 90% in RA. Alert but noted SOB with RR 28bmp with chilling sensation. No elevated temperature noted. Call Dr. Kruse's on-call and left a message.
[2020-06-04] VITALS (7 sets, daily range): BP systolic 102–150; BP diastolic 57–92
--- NOTE | 2020-06-04 00:30 | NUR ---
NURSE NOTES: Waiting for a call back and call RT to check pt. Recommended to put om Bi-pap. Left a message to On-call and Dr. Kruse for further orders.
[2020-06-04] MEDS ORDERED: Ipratropium 0.02% Inh Soln 2.5ml UD HHN SCH (01:00)
--- NOTE | 2020-06-04 01:00 | NUR ---
NURSE NOTES: Receive a call back from Dr. Bernard. Update pt's conditions regarding SOB, Spo2, wheezing. Receive order of Breathing treatment of Atrovent 0.5mg Inhalation once and will follow up later. Call RT for new order.
--- NOTE | 2020-06-04 01:30 | NUR ---
NURSE NOTES: Breathing treatment is done. Pt is awake and alert. Still noted wheezing and SOB. Spo2 94% with O2 4L NC and HR 126 bmp. Will continue to monitor closely.
--- NOTE | 2020-06-04 02:00 | NUR ---
NURSE NOTES: RR got slower down as 28 but pt says that he feels the same. Noted decreased wheezing but sill noted bilateral. Spo2 94% with O2 4L NC. Will continue to monitor.
--- NOTE | 2020-06-04 02:10 | NUR ---
NURSE NOTES: Receive a call from Dr. Bernard. Update pt's conditions and variable HR as 116 to 140 bmp as sinus tachycardia.
--- NOTE | 2020-06-04 03:15 | NUR ---
NURSE NOTES: Receive a call from Dr. Bernard update pt's condition including HR varies from 116 to 170 bmp. Receive new orders of Chest X-ray and Lasix 20mg IVS. Order noted and carried out. MD aware of discontinued fluid at this time. Will continue to monitor.
--- NOTE | 2020-06-04 05:10 | NUR ---
NURSE NOTES: Receive ABG order from Dr. Kruse. Order noted and carried out. Call RT for new order. Will continue to follow up.
--- NOTE | 2020-06-04 05:40 | NUR ---
NURSE NOTES: Update ABG result and receive new order. Order noted and carried out.
--- NOTE | 2020-06-04 05:42 | Diagnostic Imaging Report ---
EXAM: XR Chest, 1 View CLINICAL HISTORY: SOB TECHNIQUE: Frontal view of the chest. COMPARISON: Chest CT 06/01/20, chest x-ray 05/31/20 FINDINGS: Lungs: Overall lung expansion within normal limits. There appears to be increasing consolidation at the lower lung howard bilaterally right more so than left. Irregular opacity right upper lobe and adjacent pleural thickening appear similar. Mild interstitial prominence. Lungs are otherwise clear. Pleural space: peripherally calcified pleural fluid collection lateral right base is unchanged. No pneumothorax. Heart: Unremarkable. No cardiomegaly. Mediastinum: Unremarkable. Bones/joints: Unremarkable. IMPRESSION: Progressive pulmonary consolidation lower lobes.
[2020-06-04] MEDS ORDERED: Vancomycin 750mg/NS 275ml IVPB SCH ×2 (06:00)
[2020-06-04] MEDS: Piperacillin/Tazobactam 3.375 GM in NS 110 ML IVPB SCH ×3 (06:30→23:56)
--- NOTE | 2020-06-04 06:47 | NUR ---
NURSE HAND-OFF REPORT: Important Events on Shift: SOB w/ wheezing. New orders carried out. On O2 4L via NC. Patient Status: [] Diet: [regular] Pending Orders: [] Pending Results/Labs:[] Pending MD notification:[] Latest Vital Signs: Temperature 97.9 , Pulse 112 , B/P 115 /66 , Respiratory Rate 28 , O2 SAT 90 , Room Air, O2 Flow Rate 2.0 . Vital Sign Comment: [] EKG Rhythm: Sinus Tachycardia Rhythm change?: N MD Notified?: N - MD Response: Latest Cheung Fall Score: 45 Fall Risk: High Risk Safety Measures: Call light Within Reach, Bed Alarm Zone 1, Side Rails Side Rails x3, Bed position Low and Locked. Fall Precautions: Yellow Socks Patient Fall Education
--- NOTE | 2020-06-04 07:30 | NUR ---
NURSE NOTES: Given report to GIN Roper. Round is made. Seen by Dr. Kruse and aware of DM history.
--- NOTE | 2020-06-04 07:44 | NUR ---
NURSE NOTES: assumed care for pt at 0730. pt is in bed and eating breakfast, on continuous market specialist and 4L NC saturating at 96%. pt has no complaints of SOB or cough upon assessment. L 18g FA patent and flushes. previous nurse endorses that there will be orders placed for hyperglycemic control. bed is locked and in lowest position, call light within reach.
[2020-06-04] MEDS ORDERED: Tubing IV Secondary IV ONE (09:54)
[2020-06-04] MEDS ORDERED: NS 275ml ONE (09:54)
[2020-06-04] MEDS ORDERED: GLIMEPIRIDE2 MG ORAL (11:42)
[2020-06-04] MEDS ORDERED: GLUCOPHAGE1000 MG ORAL (11:42)
[2020-06-04] MEDS ORDERED: BENAZEPRIL HCL10 MG ORAL (11:42)
--- NOTE | 2020-06-04 13:08 | General Progress Note ---
Subjective ROS Limited/Unobtainable: No Constitutional: Reports: malaise, weakness HEENT: Reports: no symptoms Cardiovascular: Reports: no symptoms Respiratory: Reports: cough Gastrointestinal/Abdominal: Reports: no symptoms Genitourinary: Reports: no symptoms Neurologic/Psychiatric: Reports: no symptoms Endocrine: Reports: no symptoms Hematologic/Lymphatic: Reports: no symptoms Allergies: Coded Allergies: No Known Allergies (Unverified , 05/31/20) All Systems: reviewed and negative except above Subjective Still running intermittent fevers and shortness of breath. Also having. No new complaints. IV's broadened yesterday. Objective Last 24 Hour Vital Signs Date Time Temp Pulse Resp B/P (MAP) Pulse Ox O2 Delivery O2 Flow Rate FiO2 06/04/20 09:49 97.4 89 18 136/63 (87) 95 06/04/20 09:15 108 122/74 06/04/20 09:00 Room Air 06/04/20 08:00 98.7 108 28 122/74 (90) 98 06/04/20 08:00 113 06/04/20 04:00 112 06/04/20 04:00 97.9 112 28 115/66 (82) 90 06/04/20 01:22 94 Nasal Cannula 2.0 06/04/20 01:18 121 20 97 Nasal Cannula 2.0 28 120 20 95 06/04/20 01:17 120 18 95 Nasal Cannula 2.0 06/04/20 00:30 126 06/04/20 00:00 116 06/04/20 00:00 97.7 118 141/92 (108) 90 06/03/20 21:04 103 119/72 06/03/20 21:00 Room Air 06/03/20 20:00 103 06/03/20 20:00 98.1 103 18 119/72 (88) 97 06/03/20 17:04 99.1 06/03/20 17:04 99.1 06/03/20 16:00 108 06/03/20 15:57 100.2 114 20 129/69 (89) 98 Intake and Output 06/03/20 06/04/20 19:00 07:00 Intake Total 2158.708 ml 150 ml Output Total 250 ml 350 ml Balance 1908.708 ml -200 ml Intake Oral 490 ml 150 ml IV Total 1668.708 ml Output Urine Total 250 ml 350 ml # Voids 1 # Bowel Movements 4 1 Laboratory Tests 06/04/20 05:12: Arterial Blood pH 7.429, Arterial Blood Partial Pressure CO2 28.7L, Arterial Blood Partial Pressure O2 79.9, Arterial Blood HCO3 18.6L, Arterial Blood Oxygen Saturation 95.6, Arterial Blood Base Excess -4.4L, Kalin Test Positive Height (Feet): 5 Height (Inches): 6.00 Weight (Pounds): 150 Objective General Appearance: WD/WN Cardiovascular: normal peripheral pulses, normal rate, regular rhythm Respiratory/Chest: chest wall non-tender, lungs clear, normal breath sounds, no respiratory distress Abdomen: normal bowel sounds, non tender, soft Edema: no edema noted Leg (L), no edema noted Leg (R) Assessment/Plan Problem List: (1) Pleural effusion, right ICD Codes: J90 - Pleural effusion, not elsewhere classified SNOMED: 12102870 (2) History of TB (tuberculosis) ICD Codes: Z86.11 - Personal history of tuberculosis SNOMED: 258923287 (3) Apical lung scarring ICD Codes: J98.4 - Other disorders of lung SNOMED: 89565449 (4) RLL pneumonia ICD Codes: J18.9 - Pneumonia, unspecified organism SNOMED: 794665065 Qualifiers: Qualified Codes: J18.9 - Pneumonia, unspecified organism (5) Person under investigation for COVID-19 ICD Codes: Z20.822 - Contact with and (suspected) exposure to COVID-19 SNOMED: 895734542 (6) Sepsis ICD Codes: A41.9 - Sepsis, unspecified organism SNOMED: 53635913 Qualifiers: Qualified Codes: A41.9 - Sepsis, unspecified organism Status: stable Assessment/Plan: Continue IV antibiotics Follow-up pending cultures Wean O2 titrate bp rx/cardiac rx reepat cxr Add Accu-Cheks and sliding scale coverage Check A1c Sudeep Kruse MD Jun 04, 2020 13:08
[2020-06-04] MEDS: NovoLOG Insulin Flexpen SUBQ SCH ×2 (16:44→21:16)
--- NOTE | 2020-06-04 17:01 | NUR ---
NURSE NOTES: pt was requesting blankets and stated he was cold. DEVELOPMENT CHEMIST reported temperature of 101.2. pulled PRN medication to give, rechecked temperature and temperature was 98.5. did not give meds. pt denied feeling sick or unwell. denied chills.
--- NOTE | 2020-06-04 18:02 | NUR ---
NURSE NOTES: person to notify: Kaleb Webers: [phone] Adonis Weber (BOB)s: [phone]
--- NOTE | 2020-06-04 18:19 | NUR ---
NURSE NOTES: found pt in [address] trying to go the bank per pt, pt is confused. assessed pt and BS was 193. pt then began to go into a.fib RVR with a rate of 175. EKG done and showed ST. no cardiac or respiratory distress noted with the pt at this time. notified Dr. Bernard. new orders will be placed.
[2020-06-04] MEDS: dilTIAZem HCl 30mg tab ORAL SCH ×2 (18:45→21:04)
[2020-06-04] MEDS ORDERED: dilTIAZem HCl 50mg/10ml Inj IVP SCH (18:45)
--- NOTE | 2020-06-04 18:45 | NUR ---
NURSE NOTES: pt refused lunch and dinner due to no appetite. frequently encourage to eat and pt lightly picked at meals. monitored blood glucose levels and left dinner at bedside in case pt decides to eat later on.
--- NOTE | 2020-06-04 19:28 | NUR ---
NURSE NOTES: contacted Dr. Bernard about medication orders.per MD orders give both PO and IVP diltiazem.
--- NOTE | 2020-06-04 19:33 | NUR ---
NURSE HAND-OFF REPORT: Latest Vital Signs: Temperature 101.2 , Pulse 115 , B/P 150 /80 , Respiratory Rate 20 , O2 SAT 92 , Room Air, O2 Flow Rate 2.0 . Vital Sign Comment: [] EKG Rhythm: Sinus Tachycardia Rhythm change?: N MD Notified?: N - MD Response: Latest Cheung Fall Score: 45 Fall Risk: High Risk Safety Measures: Call light Within Reach, Bed Alarm Zone 1, Side Rails Side Rails x3, Bed position Low and Locked. Fall Precautions: Yellow Socks Patient Fall Education Report given to [].Radha GREENFIELD
--- NOTE | 2020-06-04 19:39 | NUR ---
NURSE NOTES: held diltiazem due to unstable low blood pressure. blood pressure is fluctuating from 80-90s systolic. on coming nurse aware, and will notify
[2020-06-04] MEDS: Azithromycin 250mg tab ORAL SCH (21:14)
[2020-06-04] MEDS: Vancomycin 750mg/NS 275ml IVPB SCH ×2 (21:17)
[2020-06-05] VITALS: BP 93/63
--- NOTE | 2020-06-05 00:10 | NUR ---
Assumed pt's care at 1900 from GIN Roper. Pt is aox4 with period of confusion, very restless and impulsive. Heart monitor running A flutter, scheduled cardizem po admin. COnt ABT IV vanco & zosyn with no adv reactions noted. Denies any pain, respirations even and unlabored. Safety and comfort measures maintained
[2020-06-05 04:29] VITALS: BP 93/63
[2020-06-05] MEDS: dilTIAZem HCl 30mg tab ORAL SCH ×3 (06:02→22:26)
[2020-06-05] MEDS: Piperacillin/Tazobactam 3.375 GM in NS 110 ML IVPB SCH ×3 (06:06→22:26)
[2020-06-05] MEDS: NovoLOG Insulin Flexpen SUBQ SCH ×4 (06:13→21:02)
--- NOTE | 2020-06-05 07:25 | NUR ---
NURSE NOTES: Received report from GIN Beard. Patient is AOx4. Patient with LFA 20G, patent and intact. No pain or discomfort noted at this time. Patient on NC @2L, breathing is even and unlabored with no signs of respiratory distress. Bed in lowest position, locked with side rails x2 up. Call light within reach.
--- NOTE | 2020-06-05 07:41 | NUR ---
NURSE HAND-OFF REPORT: Important Events on Shift: Running A flutter, po cardizem. Pt is very impulsive.ABT vanco & zosyn IV cont. Patient Status: Diet: Pending Orders: Pending Results/Labs: Pending MD notification: Latest Vital Signs: Temperature 98.2 , Pulse 106 , B/P 93 /63 , Respiratory Rate 22 , O2 SAT 97 , Room Air, O2 Flow Rate 2.0 . Vital Sign Comment: EKG Rhythm: Atrial Flutter Rhythm change?: Y Notified?: N - MD Response: Latest Cheung Fall Score: 45 Fall Risk: High Risk Safety Measures: Call light Within Reach, Bed Alarm Zone 1, Side Rails Side Rails x3, Bed position Low and Locked. Fall Precautions: Yellow Socks Patient Fall Education Report given to .
[2020-06-05 08:00] VITALS: BP 95/52
[2020-06-05] MEDS: Vancomycin 750mg/NS 275ml IVPB SCH ×4 (08:00→20:29)
[2020-06-05 12:00] VITALS: BP 99/56
--- NOTE | 2020-06-05 12:56 | NUR ---
RD ASSESSMENT & RECOMMENDATIONS SEE CARE ACTIVITY FOR COMPLETE ASSESSMENT DAILY ESTIMATED NEEDS: Needs based on pulmonary 59.4kg 25-30 kcals/kg 3226-8090 total kcals 1-1.5 g protein/kg 59-89 g total protein 25-30 mL/kg 6680-4088 total fluid mLs NUTRITION DIAGNOSIS: Altered nutrition related lab values r/t clinical status as evidenced by A1C 7.1, elev BG (121-269), elev POC, uglu 4+ on adm. CURRENT DIET: Regular PO DIET RECOMMENDATIONS: Continue Regular diet w/ variable po intake ADDITIONAL RECOMMENDATIONS: 1) W/ improved po intake rec CCHO LOW / LOW NA diet 2) Obtain a standing weight as able 3) Add Glucerna 1 tetra BID w/ variable po intake
--- NOTE | 2020-06-05 15:47 | General Progress Note ---
Subjective ROS Limited/Unobtainable: No Constitutional: Reports: malaise, weakness HEENT: Reports: no symptoms Cardiovascular: Reports: no symptoms Respiratory: Reports: cough Gastrointestinal/Abdominal: Reports: no symptoms Genitourinary: Reports: no symptoms Neurologic/Psychiatric: Reports: no symptoms Endocrine: Reports: no symptoms Hematologic/Lymphatic: Reports: no symptoms Allergies: Coded Allergies: No Known Allergies (Unverified , 05/31/20) All Systems: reviewed and negative except above Subjective No overnight events. Improved. Decreased fevers and congestion. No cough. Remains on IV antibiotics. Requesting to resume home diabetic medications Objective Last 24 Hour Vital Signs Date Time Temp Pulse Resp B/P (MAP) Pulse Ox O2 Delivery O2 Flow Rate FiO2 06/05/20 14:23 92 105/61 06/05/20 12:00 97.7 82 20 99/56 (70) 98 06/05/20 12:00 86 06/05/20 09:00 Room Air 06/05/20 08:35 98 105/70 06/05/20 08:00 80 06/05/20 08:00 97.5 82 20 95/52 (66) 97 06/05/20 06:02 106 93/63 06/05/20 04:51 106 06/05/20 04:29 98.2 80 22 93/63 (73) 97 06/05/20 00:00 98.9 76 22 93/63 (73) 95 06/05/20 00:00 78 06/04/20 21:14 120 108/57 06/04/20 21:04 120 108/57 06/04/20 21:00 Room Air 06/04/20 20:00 98.4 75 20 108/57 (74) 98 06/04/20 18:45 100 91/62 06/04/20 18:45 100 96/62 06/04/20 16:00 101.2 111 20 150/80 (103) 92 06/04/20 16:00 115 Intake and Output 06/04/20 06/05/20 19:00 07:00 Intake Total 600 ml Output Total 200 ml Balance 400 ml Intake Oral 600 ml Output Urine Total 200 ml # Voids 3 # Bowel Movements 1 Laboratory Tests 06/04/20 20:23: POC Whole Blood Glucose 158H 06/05/20 05:06: Vancomycin Level Trough 19.1H Height (Feet): 5 Height (Inches): 6.00 Weight (Pounds): 150 Objective General Appearance: WD/WN Cardiovascular: normal peripheral pulses, normal rate, regular rhythm Respiratory/Chest: chest wall non-tender, lungs clear, normal breath sounds, no respiratory distress Abdomen: normal bowel sounds, non tender, soft Edema: no edema noted Leg (L), no edema noted Leg (R) Assessment/Plan Problem List: (1) Pleural effusion, right ICD Codes: J90 - Pleural effusion, not elsewhere classified SNOMED: 81246776 (2) History of TB (tuberculosis) ICD Codes: Z86.11 - Personal history of tuberculosis SNOMED: 949086866 (3) Apical lung scarring ICD Codes: J98.4 - Other disorders of lung SNOMED: 75974650 (4) RLL pneumonia ICD Codes: J18.9 - Pneumonia, unspecified organism SNOMED: 406646041 Qualifiers: Qualified Codes: J18.9 - Pneumonia, unspecified organism (5) Person under investigation for COVID-19 ICD Codes: Z20.822 - Contact with and (suspected) exposure to COVID-19 SNOMED: 758472066 (6) Sepsis ICD Codes: A41.9 - Sepsis, unspecified organism SNOMED: 97538988 Qualifiers: Qualified Codes: A41.9 - Sepsis, unspecified organism Status: stable Assessment/Plan: Continue IV antibiotics Follow-up pending cultures Wean O2 titrate bp rx/cardiac rx reepat cxr Add Accu-Cheks and sliding scale coverage Check A1c Resume Metformin and glipizide Sudeep Kruse MD Jun 05, 2020 15:47
[2020-06-05 16:00] VITALS: BP 114/59
[2020-06-05] MEDS: metFORMIN 500mg tab ORAL SCH (17:22)
--- NOTE | 2020-06-05 19:19 | NUR ---
NURSE HAND-OFF REPORT: Important Events on Shift:NA Patient Status: Stable Diet: Regular Pending Orders: NA Pending Results/Labs:NA Pending MD notification:NA Latest Vital Signs: Temperature 97.6 , Pulse 101 , B/P 114 /59 , Respiratory Rate 20 , O2 SAT 98 , Room Air, O2 Flow Rate 2.0 . Vital Sign Comment: Stable EKG Rhythm: Atrial Flutter Rhythm change?: N MD Notified?: N - MD Response: Latest Cheung Fall Score: 45 Fall Risk: High Risk Safety Measures: Call light Within Reach, Bed Alarm Zone 1, Side Rails Side Rails x3, Bed position Low and Locked. Fall Precautions: Yellow Socks Patient Fall Education Report given to GIN Claudio.
--- NOTE | 2020-06-05 19:27 | NUR ---
NURSE NOTES: Received patient in bed, awake, alert , oriented x3/4, patient is ambulatory with steady gate. IV site is clean dry and intact, on oxygen at 2 liters per min. Will continue to monitor for comfort and safety, bed is lowered and locked, alarm is on.
[2020-06-05 20:06] VITALS: BP 119/67
[2020-06-05] MEDS: Azithromycin 250mg tab ORAL SCH (20:29)
[2020-06-06 00:08] VITALS: BP 118/74
[2020-06-06 04:00] VITALS: BP 124/74
[2020-06-06] MEDS: Piperacillin/Tazobactam 3.375 GM in NS 110 ML IVPB SCH ×3 (05:33→22:59)
[2020-06-06] MEDS: NovoLOG Insulin Flexpen SUBQ SCH ×4 (06:02→21:44)
[2020-06-06] MEDS: GlipiZIDE 5mg tab ORAL SCH (06:04)
[2020-06-06] MEDS: dilTIAZem HCl 30mg tab ORAL SCH ×3 (06:04→21:40)
--- NOTE | 2020-06-06 07:26 | NUR ---
NURSE HAND-OFF REPORT: Important Events on Shift: uneventful blood glucose in am 133 Patient Status: full Diet: regular Pending Orders: Pending Results/Labs: Pending MD notification: Latest Vital Signs: Temperature 97.4 , Pulse 74 , B/P 115 /78 , Respiratory Rate 18 , O2 SAT 98 , Room Air, O2 Flow Rate 2.0 . Vital Sign Comment: EKG Rhythm: Atrial Flutter Rhythm change?: N MD Notified?: N - MD Response: Latest Cheung Fall Score: 45 Fall Risk: High Risk Safety Measures: Call light Within Reach, Bed Alarm Zone 1, Side Rails Side Rails x3, Bed position Low and Locked. Fall Precautions: Yellow Socks Patient Fall Education Report given to Hal Kraft RN
--- NOTE | 2020-06-06 07:46 | NUR ---
NURSE NOTES: Patient seen sitting at edge of bed watching TV with no acute signs of distress and no complaints of pain 0/10. The patient is on 2L NC with oxygen saturation within normal limits. The patient has a L FA 20G IV that is clean, patent intact and saline locked. The patients bed is in lowest position, locked, side rails x2 and call light within reach.
[2020-06-06 08:00] VITALS: BP 118/63
[2020-06-06] MEDS: Vancomycin 750mg/NS 275ml IVPB SCH ×4 (08:30→21:44)
[2020-06-06] MEDS: metFORMIN 500mg tab ORAL SCH ×2 (08:30→17:02)
[2020-06-06 12:00] VITALS: BP 103/57
--- NOTE | 2020-06-06 15:26 | General Progress Note ---
Subjective ROS Limited/Unobtainable: No Constitutional: Reports: no symptoms HEENT: Reports: no symptoms Cardiovascular: Reports: no symptoms Respiratory: Reports: cough, shortness of breath Gastrointestinal/Abdominal: Reports: no symptoms Genitourinary: Reports: no symptoms Neurologic/Psychiatric: Reports: no symptoms Endocrine: Reports: no symptoms Hematologic/Lymphatic: Reports: no symptoms Allergies: Coded Allergies: No Known Allergies (Unverified , 05/31/20) All Systems: reviewed and negative except above Subjective No overnight events. Improved. Decreased fevers and congestion. No cough. Remains on IV antibiotics. Objective Last 24 Hour Vital Signs Date Time Temp Pulse Resp B/P (MAP) Pulse Ox O2 Delivery O2 Flow Rate FiO2 06/06/20 13:14 80 103/57 06/06/20 12:00 81 06/06/20 12:00 97.5 77 20 103/57 (72) 94 06/06/20 09:00 Room Air 06/06/20 08:31 82 118/63 06/06/20 08:00 84 06/06/20 08:00 97.5 82 20 118/63 (81) 98 06/06/20 07:00 98 Room Air 21 06/06/20 07:00 83 18 98 Room Air 06/06/20 06:04 74 115/78 06/06/20 04:16 87 06/06/20 04:00 97.4 87 18 124/74 (91) 98 87 06/06/20 00:08 98.7 87 18 118/74 (89) 97 87 06/05/20 22:26 78 107/78 06/05/20 21:18 Room Air 06/05/20 20:29 119 74/79 06/05/20 20:06 97.9 78 18 119/67 (84) 98 79 06/05/20 20:00 116 06/05/20 16:00 97.6 101 20 114/59 (77) 98 06/05/20 16:00 108 Intake and Output 06/05/20 06/06/20 19:00 07:00 Intake Total 300 ml Balance 300 ml Intake Oral 300 ml # Voids 3 Height (Feet): 5 Height (Inches): 6.00 Weight (Pounds): 150 Objective General Appearance: WD/WN Cardiovascular: normal peripheral pulses, normal rate, regular rhythm Respiratory/Chest: chest wall non-tender, lungs clear, normal breath sounds, no respiratory distress Abdomen: normal bowel sounds, non tender, soft Edema: no edema noted Leg (L), no edema noted Leg (R) Assessment/Plan Problem List: (1) Pleural effusion, right ICD Codes: J90 - Pleural effusion, not elsewhere classified SNOMED: 17970241 (2) History of TB (tuberculosis) ICD Codes: Z86.11 - Personal history of tuberculosis SNOMED: 439920316 (3) Apical lung scarring ICD Codes: J98.4 - Other disorders of lung SNOMED: 21029851 (4) RLL pneumonia ICD Codes: J18.9 - Pneumonia, unspecified organism SNOMED: 390889941 Qualifiers: Qualified Codes: J18.9 - Pneumonia, unspecified organism (5) Person under investigation for COVID-19 ICD Codes: Z20.822 - Contact with and (suspected) exposure to COVID-19 SNOMED: 306027600 (6) Sepsis ICD Codes: A41.9 - Sepsis, unspecified organism SNOMED: 52304746 Qualifiers: Qualified Codes: A41.9 - Sepsis, unspecified organism Status: stable Assessment/Plan: cont iv abx repeat cxr and labs consider conversion to oral abx tomorrow possible dc tomorrow Sudeep Kruse MD Jun 06, 2020 15:26
[2020-06-06 16:00] VITALS: BP 94/58
--- NOTE | 2020-06-06 16:27 | Diagnostic Imaging Report ---
Indication: Shortness of breath Technique: One view of the chest Comparison: 06/04/2020 Findings: Bilateral infiltrates appear unchanged. Right upper lobe pleural and parenchymal scarring and right middle lower lung pleural calcification is unchanged. The heart size is normal. A TIPS shunt is again demonstrated in the expected location Impression: Unchanged, over one day, findings as above.
--- NOTE | 2020-06-06 18:57 | NUR ---
NURSE HAND-OFF REPORT: Important Events on Shift:[Accelerated Junctional Rhythm (MD aware), ABX] Patient Status: [Full code] Diet: [Regular Diet] Pending Orders: [N/A] Pending Results/Labs:[N/A] Pending MD notification:[N/A] Latest Vital Signs: Temperature 97.5 , Pulse 74 , B/P 94 /58 , Respiratory Rate 20 , O2 SAT 95 , Room Air, O2 Flow Rate 2.0 . Vital Sign Comment: [] EKG Rhythm: Junctional Rhythm change?: Miguel KAYE Notified?: Y -Dr. Marco Antonio KAYE Response: Message left await call Latest Cheung Fall Score: 45 Fall Risk: High Risk Safety Measures: Call light Within Reach, Bed Alarm Zone 1, Side Rails Side Rails x3, Bed position Low and Locked. Fall Precautions: Yellow Socks Patient Fall Education Report given to [GIN Davey].
--- NOTE | 2020-06-06 19:00 | NUR ---
NURSE NOTES: Report received from GIN Lamb. Upon assessment pt is awake, alert, A/Ox4. Seen walking around his room. 5-lead EKG shows SR at 88 BPM. Vitals WNL. Afebrile. 0/10 pain per patient. Left IV patent and intact. Bed kept in lowest and locked position. Side rails up x2. Call light within reach. Will monitor.
[2020-06-06 20:00] VITALS: BP 139/72
[2020-06-06] MEDS: Azithromycin 250mg tab ORAL SCH (21:39)
[2020-06-07] VITALS: BP 91/61
--- NOTE | 2020-06-07 | NUR ---
NURSE NOTES: Wheezing auscultated on bilateral lung lobes. Xopenex treatment initiated with RT at bedside. Will monitor.
[2020-06-07] MEDS: Levalbuterol Inh UD 1.25mg/0.5ml HHN PRN ×2 (00:17→12:35)
[2020-06-07 04:00] VITALS: BP 126/68
[2020-06-07] MEDS: GlipiZIDE 5mg tab ORAL SCH (05:23)
[2020-06-07] MEDS: Piperacillin/Tazobactam 3.375 GM in NS 110 ML IVPB SCH ×3 (05:23→21:40)
[2020-06-07] MEDS: dilTIAZem HCl 30mg tab ORAL SCH ×3 (05:24→21:31)
[2020-06-07] MEDS: NovoLOG Insulin Flexpen SUBQ SCH ×4 (05:28→21:46)
--- NOTE | 2020-06-07 06:01 | NUR ---
NURSE NOTES: Dr. Kruse at bedside. Plan for DC with antibiotics and INH. Made aware of episode of AV block. No further orders endorsed. Pt in stable condition
[2020-06-07 06:51] LABS: BASOPHILS % (AUTO) 2.1 % (0.0-2.0); EOSINOPHILS % (AUTO) 4.2 % (0.0-3.0); HEMATOCRIT 36.6 % (42.0-52.0); HEMOGLOBIN 12.5 G/DL (14.2-18.0); LYMPHOCYTES % (AUTO) 8.5 % (20.0-45.0); MEAN CORPUSCULAR VOLUME 94 FL (80-99); NEUTROPHILS % (AUTO) 75.2 % (45.0-75.0); PLATELET COUNT 145 K/UL (150-450); RED CELL DISTRIBUTION WIDTH 15.3 % (11.6-14.8); WHITE BLOOD COUNT 12.8 K/UL (4.8-10.8)
[2020-06-07 07:09] LABS: ALBUMIN 2.2 G/DL (3.4-5.0); ALBUMIN/GLOBULIN RATIO 0.6 (1.0-2.7); BILIRUBIN,TOTAL 1.4 MG/DL (0.2-1.0); CALCIUM 7.7 MG/DL (8.5-10.1); CREATININE 2.8 MG/DL (0.55-1.30); POTASSIUM 3.9 MMOL/L (3.5-5.1)
[2020-06-07 07:19] LABS: BILIRUBIN,DIRECT 0.7 MG/DL (0.0-0.3)
--- NOTE | 2020-06-07 07:25 | NUR ---
NURSE NOTES: Patient seen standing at side of the bed eating breakfast with no acute signs of distress and no complaints of pain 0/10. The patient is on room air with oxygen saturation within normal limits. The patient has a L FA 20G IV that is clean, patent intact and saline locked. the patients bed is in lowest position, locked, side rails x2 and call light within reach. Patient instructed to press call light for further needs.
[2020-06-07 08:00] VITALS: BP 144/70
[2020-06-07] MEDS: metFORMIN 500mg tab ORAL SCH (08:23)
[2020-06-07] MEDS: Vancomycin 750mg/NS 275ml IVPB SCH ×2 (08:23)
--- NOTE | 2020-06-07 10:55 | General Progress Note ---
Subjective ROS Limited/Unobtainable: No Constitutional: Reports: malaise, weakness HEENT: Reports: no symptoms Cardiovascular: Reports: no symptoms Respiratory: Reports: no symptoms Gastrointestinal/Abdominal: Reports: no symptoms Genitourinary: Reports: no symptoms Neurologic/Psychiatric: Reports: no symptoms Endocrine: Reports: no symptoms Hematologic/Lymphatic: Reports: no symptoms Allergies: Coded Allergies: No Known Allergies (Unverified , 05/31/20) All Systems: reviewed and negative except above Subjective No overnight events. Improved. Decreased fevers and congestion. No cough. Remains on IV antibiotics. wants to go home. cr up to 2.8 Objective Last 24 Hour Vital Signs Date Time Temp Pulse Resp B/P (MAP) Pulse Ox O2 Delivery O2 Flow Rate FiO2 06/07/20 09:00 Room Air 06/07/20 08:23 84 144/70 06/07/20 08:00 77 06/07/20 08:00 97.2 84 20 144/70 (94) 95 06/07/20 05:24 76 126/68 06/07/20 04:00 97.4 79 20 126/68 (87) 95 06/07/20 04:00 76 06/07/20 00:18 96 18 97 Room Air 21 95 18 96 06/07/20 00:00 97.5 72 20 91/61 (71) 95 06/07/20 00:00 88 06/06/20 21:40 90 139/72 06/06/20 21:39 90 139/72 06/06/20 21:00 Room Air 06/06/20 20:12 95 18 97 Room Air 21 06/06/20 20:12 98 Room Air 21 06/06/20 20:00 88 06/06/20 20:00 98.0 70 20 139/72 (94) 99 06/06/20 16:00 74 06/06/20 16:00 97.5 71 20 94/58 (70) 95 06/06/20 13:14 80 103/57 06/06/20 12:00 81 06/06/20 12:00 97.5 77 20 103/57 (72) 94 Intake and Output 06/06/20 06/07/20 19:00 07:00 Intake Total 493.333 ml Balance 493.333 ml Intake Oral 200 ml IV Total 293.333 ml # Voids 6 3 Laboratory Tests 06/06/20 16:05: POC Whole Blood Glucose [Pending] 06/06/20 21:43: POC Whole Blood Glucose [Pending] 06/07/20 05:30: White Blood Count 12.8H, Red Blood Count 3.90L, Hemoglobin 12.5L, Hematocrit 36.6L, Mean Corpuscular Volume 94, Mean Corpuscular Hemoglobin 31.9H, Mean Corpuscular Hemoglobin Concent 34.1, Red Cell Distribution Width 15.3H, Platelet Count 145L, Mean Platelet Volume 8.9, Neutrophils (%) (Auto) 75.2H, Lymphocytes (%) (Auto) 8.5L, Monocytes (%) (Auto) 10.0, Eosinophils (%) (Auto) 4.2H, Basophils (%) (Auto) 2.1H, Sodium Level 136, Potassium Level 3.9, Chloride Level 104, Carbon Dioxide Level 18L, Anion Gap 14, Blood Urea Nitrogen 61H, Creatinine 2.8H, Estimat Glomerular Filtration Rate 22.7, Glucose Level 183H, Calcium Level 7.7L, Total Bilirubin 1.4H, Direct Bilirubin 0.7H, Aspartate Amino Transf (AST/SGOT) 101H, Alanine Aminotransferase (ALT/SGPT) 117H, Alkaline Phosphatase 132H, Total Protein 6.2L, Albumin 2.2L, Globulin 4.0, Albumin/Globulin Ratio 0.6L Height (Feet): 5 Height (Inches): 6.00 Weight (Pounds): 150 Objective General Appearance: WD/WN Cardiovascular: normal peripheral pulses, normal rate, regular rhythm Respiratory/Chest: chest wall non-tender, lungs clear, normal breath sounds, no respiratory distress Abdomen: normal bowel sounds, non tender, soft Edema: no edema noted Leg (L), no edema noted Leg (R) Assessment/Plan Problem List: (1) Pleural effusion, right ICD Codes: J90 - Pleural effusion, not elsewhere classified SNOMED: 18478725 (2) History of TB (tuberculosis) ICD Codes: Z86.11 - Personal history of tuberculosis SNOMED: 258434770 (3) Apical lung scarring ICD Codes: J98.4 - Other disorders of lung SNOMED: 55592895 (4) RLL pneumonia ICD Codes: J18.9 - Pneumonia, unspecified organism SNOMED: 981113013 Qualifiers: Qualified Codes: J18.9 - Pneumonia, unspecified organism (5) Person under investigation for COVID-19 ICD Codes: Z20.822 - Contact with and (suspected) exposure to COVID-19 SNOMED: 055970544 (6) Sepsis ICD Codes: A41.9 - Sepsis, unspecified organism SNOMED: 78838879 Qualifiers: Qualified Codes: A41.9 - Sepsis, unspecified organism Status: stable Assessment/Plan: dc vanco cont zosyn ivf ordered repeat labs in am bladder scan hold dc with worsening renal insuff Sudeep Kruse MD Jun 07, 2020 10:54
[2020-06-07 12:00] VITALS: BP 124/69
--- NOTE | 2020-06-07 12:45 | NUR ---
NURSE NOTES: Patient noted to have wheezing on auscultation. RT at bedside giving breathing treatment. Will continue to monitor.
[2020-06-07 16:00] VITALS: BP 130/72
--- NOTE | 2020-06-07 16:06 | NUR ---
INSURANCE CLINICALS FAXED TO [facility] [place] [facility] & [phone]
--- NOTE | 2020-06-07 19:31 | NUR ---
NURSE HAND-OFF REPORT: Important Events on Shift:[breathing treatment, ABX] Patient Status: [full code] Diet: [Regular] Pending Orders: [N/A] Pending Results/Labs:[N/A] Pending MD notification:[N/A] Latest Vital Signs: Temperature 97.1 , Pulse 87 , B/P 130 /72 , Respiratory Rate 20 , O2 SAT 96 , Room Air, O2 Flow Rate 2.0 . Vital Sign Comment: [] EKG Rhythm: Sinus Rhythm Rhythm change?: N MD Notified?: Miguel Bernard MD Response: Message left await call Latest Cheung Fall Score: 45 Fall Risk: High Risk Safety Measures: Call light Within Reach, Bed Alarm Zone 1, Side Rails Side Rails x2, Bed position Low and Locked. Fall Precautions: Yellow Socks Patient Fall Education Report given to [GIN De León].
[2020-06-07 20:00] VITALS: BP 144/70
[2020-06-07] MEDS: Azithromycin 250mg tab ORAL SCH (21:31)
[2020-06-08] VITALS: BP 151/87
--- NOTE | 2020-06-08 00:13 | NUR ---
NURSE NOTES: pt is awake, alert, A/Ox4. Seen walking around his room.
[2020-06-08] MEDS: Levalbuterol Inh UD 1.25mg/0.5ml HHN PRN ×4 (01:32→23:51)
--- NOTE | 2020-06-08 01:32 | NUR ---
NURSE NOTES: Patient noted to have wheezing on auscultation. RT at bedside giving breathing treatment. Will continue to monitor.
[2020-06-08 04:00] VITALS: BP 146/83
[2020-06-08] MEDS: Piperacillin/Tazobactam 3.375 GM in NS 110 ML IVPB SCH ×3 (05:59→22:11)
[2020-06-08] MEDS: GlipiZIDE 5mg tab ORAL SCH (06:00)
[2020-06-08] MEDS: dilTIAZem HCl 30mg tab ORAL SCH ×3 (06:00→22:21)
[2020-06-08] MEDS: NovoLOG Insulin Flexpen SUBQ SCH ×4 (06:12→20:53)
[2020-06-08 06:50] LABS: ALBUMIN 2.2 G/DL (3.4-5.0); ALBUMIN/GLOBULIN RATIO 0.5 (1.0-2.7); BILIRUBIN,TOTAL 1.3 MG/DL (0.2-1.0); CREATININE 2.4 MG/DL (0.55-1.30); POTASSIUM 4.5 MMOL/L (3.5-5.1)
[2020-06-08 07:06] LABS: BILIRUBIN,DIRECT 0.6 MG/DL (0.0-0.3)
--- NOTE | 2020-06-08 07:43 | NUR ---
NURSE NOTES: Received report from GIN Dasilva. Patient observed to be asleep in bed comfortably, currently on room air. No s/sx of sob/distress at this time. With IV site located on LFA gauge 20 running NS @ 100 IV site dry, inplace, and intact. Bed placed on lowest and locked, call light placed within reach and will continue to monitor for any changes in patient's condition.
[2020-06-08 08:00] VITALS: BP 131/75
--- NOTE | 2020-06-08 11:45 | NUR ---
NURSE NOTES: Observed patient to have episodes of wheezing. Notified RT. Breathing tx provided to patient. Will continue to monitor patient for any changes in patient's condition.
[2020-06-08 12:00] VITALS: BP 135/85
--- NOTE | 2020-06-08 12:28 | NUR ---
NURSE NOTES: Patient observed with episodes of dry cough throughout shift. Notified Dr Kruse. Still awaiting for any further orders.
[2020-06-08 16:00] VITALS: BP 145/74
--- NOTE | 2020-06-08 19:29 | NUR ---
NURSE HAND-OFF REPORT: Important Events on Shift:Renal kelin Patient Status: stable Diet:reg Pending Orders: n/a Pending Results/Labs:n/a Pending MD notification:n/a Latest Vital Signs: Temperature 97.7 , Pulse 81 , B/P 145 /74 , Respiratory Rate 20 , O2 SAT 95 , Room Air, O2 Flow Rate 2.0 . Vital Sign Comment: stable EKG Rhythm: Sinus Rhythm Rhythm change?: N MD Notified?: Y - MD Response: Latest Cheung Fall Score: 45 Fall Risk: High Risk Safety Measures: Call light Within Reach, Bed Alarm Zone 1, Side Rails Side Rails x2, Bed position Low and Locked. Fall Precautions: Yellow Socks Patient Fall Education Report given to GIN Dasilva.
[2020-06-08 20:00] VITALS: BP 118/81
--- NOTE | 2020-06-08 23:01 | NUR ---
NURSE NOTES: Patient observed to be asleep in bed comfortably, currently on room air. No s/sx of sob/distress at this time. With IV site located on LFA gauge 20 running NS @ 100 IV site dry, inplace, and intact. Bed placed on lowest and locked, call light placed within reach and will continue to monitor for any changes in patient's condition.
[2020-06-09] VITALS: BP 134/88
--- NOTE | 2020-06-09 00:05 | NUR ---
NURSE NOTES: Patient noted to have wheezing on auscultation. RT at bedside giving breathing treatment. Will continue to monitor.
[2020-06-09 04:00] VITALS: BP 154/80
[2020-06-09] MEDS: Piperacillin/Tazobactam 3.375 GM in NS 110 ML IVPB SCH ×3 (05:38→22:21)
[2020-06-09] MEDS: dilTIAZem HCl 30mg tab ORAL SCH ×3 (05:39→22:21)
[2020-06-09] MEDS: GlipiZIDE 5mg tab ORAL SCH (05:39)
[2020-06-09 06:22] LABS: ALBUMIN/GLOBULIN RATIO 0.5 (1.0-2.7); BILIRUBIN,TOTAL 1.8 MG/DL (0.2-1.0); CALCIUM 7.7 MG/DL (8.5-10.1); CREATININE 2.1 MG/DL (0.55-1.30); POTASSIUM 4.4 MMOL/L (3.5-5.1)
[2020-06-09 06:26] LABS: BILIRUBIN,DIRECT 0.8 MG/DL (0.0-0.3)
[2020-06-09] MEDS: NovoLOG Insulin Flexpen SUBQ SCH ×4 (06:26→20:45)
--- NOTE | 2020-06-09 06:30 | General Progress Note ---
Subjective ROS Limited/Unobtainable: No Constitutional: Reports: malaise, weakness HEENT: Reports: no symptoms Cardiovascular: Reports: no symptoms Respiratory: Reports: cough Gastrointestinal/Abdominal: Reports: no symptoms Genitourinary: Reports: no symptoms Neurologic/Psychiatric: Reports: no symptoms Endocrine: Reports: no symptoms Hematologic/Lymphatic: Reports: no symptoms Allergies: Coded Allergies: No Known Allergies (Unverified , 05/31/20) All Systems: reviewed and negative except above Subjective no complaints. renal fxn improving. elevated LFTs noted. no fevers or chills. no sob. Objective Last 24 Hour Vital Signs Date Time Temp Pulse Resp B/P (MAP) Pulse Ox O2 Delivery O2 Flow Rate FiO2 06/09/20 05:39 84 154/80 06/09/20 04:00 97.7 84 20 154/80 (104) 95 06/09/20 04:00 81 06/09/20 00:00 97.6 89 20 134/88 (103) 95 06/08/20 23:56 85 18 100 Room Air 83 18 100 06/08/20 22:21 89 118/81 06/08/20 21:00 Room Air 06/08/20 20:00 97.3 89 20 118/81 (93) 95 06/08/20 20:00 88 06/08/20 18:55 100 Room Air 06/08/20 18:55 83 18 100 Room Air 21 06/08/20 16:00 81 06/08/20 16:00 97.7 91 20 145/74 (97) 95 06/08/20 13:44 81 135/85 06/08/20 12:00 98.2 83 21 135/85 (102) 96 06/08/20 12:00 81 06/08/20 11:46 88 20 99 Room Air 21 85 20 95 06/08/20 09:00 Room Air 06/08/20 08:52 89 131/71 06/08/20 08:00 90 06/08/20 08:00 97.4 89 21 131/75 (93) 99 06/08/20 06:40 80 18 97 Room Air 21 06/08/20 06:40 97 Room Air 21 Intake and Output 06/08/20 06/09/20 19:00 07:00 Intake Total 960 ml Balance 960 ml Intake Oral 960 ml # Voids 2 # Bowel Movements 1 Laboratory Tests 06/09/20 05:32: Sodium Level 142, Potassium Level 4.4, Chloride Level 111H, Carbon Dioxide Level 21, Anion Gap 10, Blood Urea Nitrogen 34H, Creatinine 2.1H, Estimat Glomerular Filtration Rate 31.7, Glucose Level 213H, Calcium Level 7.7L, Total Bilirubin 1.8H, Direct Bilirubin 0.8H, Aspartate Amino Transf (AST/SGOT) 66H, Alanine Aminotransferase (ALT/SGPT) 90H, Alkaline Phosphatase 138H, Total Protein 6.2L, Albumin 2.0L, Globulin 4.2, Albumin/Globulin Ratio 0.5L Height (Feet): 5 Height (Inches): 6.00 Weight (Pounds): 150 Objective General Appearance: WD/WN Cardiovascular: normal peripheral pulses, normal rate, regular rhythm Respiratory/Chest: chest wall non-tender, lungs clear, normal breath sounds, no respiratory distress Abdomen: normal bowel sounds, non tender, soft Edema: no edema noted Leg (L), no edema noted Leg (R) Assessment/Plan Problem List: (1) Pleural effusion, right ICD Codes: J90 - Pleural effusion, not elsewhere classified SNOMED: 00212019 (2) History of TB (tuberculosis) ICD Codes: Z86.11 - Personal history of tuberculosis SNOMED: 240301805 (3) Apical lung scarring ICD Codes: J98.4 - Other disorders of lung SNOMED: 41809734 (4) RLL pneumonia ICD Codes: J18.9 - Pneumonia, unspecified organism SNOMED: 390769071 Qualifiers: Qualified Codes: J18.9 - Pneumonia, unspecified organism (5) Person under investigation for COVID-19 ICD Codes: Z20.822 - Contact with and (suspected) exposure to COVID-19 SNOMED: 748176782 (6) Sepsis ICD Codes: A41.9 - Sepsis, unspecified organism SNOMED: 03659151 Qualifiers: Qualified Codes: A41.9 - Sepsis, unspecified organism Status: stable Assessment/Plan: cont ivf monitor renal fxn check renal us and abd us monitor LFTs dc planning once renal fxn improved abx Sudeep Kruse MD Jun 09, 2020 06:30
--- NOTE | 2020-06-09 07:10 | NUR ---
NURSE NOTES: received patient report from brigitte wolfe. patient is on bed awake. not in acute distress, for us abd, npo. aflutter, afib. no acute event last night. will follow plan of care.
[2020-06-09 08:00] VITALS: BP 172/83
--- NOTE | 2020-06-09 09:08 | Diagnostic Imaging Report ---
Indication: Acute renal failure Technique: Grayscale and duplex images of the kidneys, retroperitoneum, and bladder were obtained. Comparison: none Findings: Right kidney measures 11.7 cm in length. Left kidney measures 13 cm in length. Both kidneys demonstrate normal echogenicity. No hydronephrosis. A small cyst is seen in the left kidney. Normal inferior vena cava. Bladder is normal. Incidentally noted is a small amount of ascites fluid Impression: Negative for hydronephrosis Small left renal cyst Ascites.
[2020-06-09] MEDS: Levalbuterol Inh UD 1.25mg/0.5ml HHN PRN (11:22)
[2020-06-09 12:00] VITALS: BP 139/81
--- NOTE | 2020-06-09 14:06 | NUR ---
INSURANCE CLINICALS FAXED TO [facility] [place] - [place] [facility] & [phone]
[2020-06-09 16:00] VITALS: BP 139/96
--- NOTE | 2020-06-09 18:02 | Diagnostic Imaging Report ---
Indication: Reason For Exam: ABN LABS Technique: Patrick-scale and duplex images of the upper abdomen were obtained Comparison: Findings: Gallbladder a gallstone. There is pericholecystic fluid. Sonographic Gonzalez's sign is negative. Common bile duct measures 5 mm in diameter. No intrahepatic biliary ductal dilatation. The liver demonstrates surface nodularity. There is a 9 mm hypoechoic mass in the left lobe. It demonstrates coarsened echogenicity. There is a small amount of ascites fluid. A TIPS shunt is present. This appears to be patent. A small hypoechoic structure is seen at the felicia splenic confluence. Pancreas is unremarkable. The spleen is enlarged, measuring 14 cm long axis dimension Left kidney measures 12.7 cm in length. Right kidney measures 11.7 cm length. Both kidneys demonstrate normal echogenicity. There is no hydronephrosis. Calcifications and cysts are seen in the left kidney . Abdominal aorta is partially obscured by bowel gas, visualized portions are non-aneurysmal . Impression: Evidence of hepatic cirrhosis 9 mm hypoechoic left lobe liver nodule. Neoplasm possible Patent TIPS shunt Ascites Splenomegaly Cholelithiasis. Pericholecystic fluid is probably manifestation of ascites, but the possibility of acute cholecystitis should also be considered. Negative for dilated bile ducts Echogenic material within the portosplenic confluence, likely nonocclusive thrombus Left renal cysts and nonobstructive calyceal calculus Nonvisualization of the distal abdominal aorta Findings discussed by phone with Dr. Kruse at the time of interpretation
--- NOTE | 2020-06-09 18:43 | NUR ---
NURSE NOTES: left a message to dr russo that patient converted again to aflutter HR on the 90s. awaiting callback and new order.
--- NOTE | 2020-06-09 19:00 | NUR ---
NURSE NOTES: dr russo called back regarding patients HR conversion to aflutter. no new orders received.
--- NOTE | 2020-06-09 19:10 | NUR ---
NURSE HAND-OFF REPORT: Important Events on Shift: Hr converted to Afib again,DR Kruse made aware, no new orders received. Patient Status: full code Diet: regular Pending Orders: [] Pending Results/Labs:[] Pending MD notification:[] Latest Vital Signs: Temperature 98.1 , Pulse 73 , B/P 139 /96 , Respiratory Rate 19 , O2 SAT 98 , Room Air, O2 Flow Rate 2.0 . Vital Sign Comment: stable EKG Rhythm: Sinus Rhythm Rhythm change?: N MD Notified?: Y -Dr. Marco Antonio KAYE Response: Message left await call Latest Cheung Fall Score: 45 Fall Risk: High Risk Safety Measures: Call light Within Reach, Bed Alarm Zone 1, Side Rails Side Rails x2, Bed position Low and Locked. Fall Precautions: Yellow Socks Patient Fall Education Report given to tammi wolfe.
[2020-06-09 20:00] VITALS: BP 169/62
[2020-06-10] VITALS: BP 165/81
--- NOTE | 2020-06-10 00:17 | NUR ---
NURSE NOTES: patient is on bed awake. not in acute distress, for us abd, npo. aflutter, afib. no acute event last night. will follow plan of care.
[2020-06-10] MEDS: Levalbuterol Inh UD 1.25mg/0.5ml HHN PRN ×2 (00:43→14:22)
[2020-06-10 04:00] VITALS: BP 145/79
--- NOTE | 2020-06-10 05:10 | NUR ---
NURSE NOTES: Patient noted to have wheezing on auscultation. RT at bedside giving breathing treatment. Will continue to monitor.
--- NOTE | 2020-06-10 05:12 | NUR ---
NURSE NOTES: Patient observed to be asleep in bed comfortably, currently on room air. No s/sx of sob/distress at this time. With IV site located on RFA gauge 20 running NS @ 100 IV site dry, inplace, and intact. Bed placed on lowest and locked, call light placed within reach and will continue to monitor for any changes in patient's condition.
[2020-06-10] MEDS: Piperacillin/Tazobactam 3.375 GM in NS 110 ML IVPB SCH ×3 (05:53→21:42)
[2020-06-10] MEDS: GlipiZIDE 5mg tab ORAL SCH (05:54)
[2020-06-10] MEDS: dilTIAZem HCl 30mg tab ORAL SCH ×3 (05:54→21:43)
[2020-06-10] MEDS: NovoLOG Insulin Flexpen SUBQ SCH ×4 (06:30→21:37)
--- NOTE | 2020-06-10 07:38 | NUR ---
NURSE NOTES: Received report from GIN Dasilva. Resident is A/O x3 and verbally responsive. No SOB or acute distress noted. No pain noted. Pt has a IV site located on [facility] 20G running NS @ 100cc/hr. monitoring engineer shows Afib @ 90's. Bed placed on lowest and locked and in lowest position. Call light placed within reach. Will continue plan of care.
[2020-06-10 08:00] VITALS: BP 132/74
--- NOTE | 2020-06-10 08:06 | General Progress Note ---
Subjective ROS Limited/Unobtainable: No Constitutional: Reports: malaise, weakness HEENT: Reports: no symptoms Cardiovascular: Reports: no symptoms Respiratory: Reports: cough Gastrointestinal/Abdominal: Reports: no symptoms Genitourinary: Reports: no symptoms Neurologic/Psychiatric: Reports: no symptoms Endocrine: Reports: no symptoms Hematologic/Lymphatic: Reports: no symptoms Allergies: Coded Allergies: No Known Allergies (Unverified , 05/31/20) All Systems: reviewed and negative except above Subjective no complaints. renal fxn improving. elevated LFTs noted. no fevers or chills. no sob. US with cirrhosis and prior tips. nonocclusive portal vein thrombus Objective Last 24 Hour Vital Signs Date Time Temp Pulse Resp B/P (MAP) Pulse Ox O2 Delivery O2 Flow Rate FiO2 06/10/20 05:54 74 145/79 06/10/20 04:00 97.9 74 20 145/79 (101) 97 06/10/20 04:00 72 06/10/20 00:44 86 18 100 Room Air 21 79 18 96 06/10/20 00:30 165/81 06/10/20 00:00 75 06/10/20 00:00 98.4 77 19 165/81 (109) 94 06/09/20 22:21 84 169/62 06/09/20 21:00 Room Air 06/09/20 20:37 84 169/61 06/09/20 20:26 75 18 96 Room Air 21 06/09/20 20:26 96 Room Air 21 06/09/20 20:00 80 06/09/20 20:00 97.5 84 19 169/62 (97) 94 06/09/20 16:00 98.1 73 19 139/96 (110) 98 06/09/20 15:47 78 06/09/20 14:21 76 139/81 06/09/20 12:00 76 06/09/20 12:00 97.7 81 19 139/81 (100) 96 06/09/20 11:32 77 18 99 Room Air 21 61 18 95 06/09/20 09:00 Room Air 06/09/20 08:35 74 172/83 Intake and Output 06/09/20 06/10/20 19:00 07:00 Intake Total 1210.0 ml 350 ml Balance 1210.0 ml 350 ml Intake Oral 350 ml 350 ml IV Total 860.0 ml # Voids 4 4 Height (Feet): 5 Height (Inches): 6.00 Weight (Pounds): 150 Objective General Appearance: WD/WN Cardiovascular: normal peripheral pulses, normal rate, regular rhythm Respiratory/Chest: chest wall non-tender, lungs clear, normal breath sounds, no respiratory distress Abdomen: normal bowel sounds, non tender, soft Edema: no edema noted Leg (L), no edema noted Leg (R) Assessment/Plan Problem List: (1) Pleural effusion, right ICD Codes: J90 - Pleural effusion, not elsewhere classified SNOMED: 46441546 (2) History of TB (tuberculosis) ICD Codes: Z86.11 - Personal history of tuberculosis SNOMED: 353879915 (3) Apical lung scarring ICD Codes: J98.4 - Other disorders of lung SNOMED: 92768826 (4) RLL pneumonia ICD Codes: J18.9 - Pneumonia, unspecified organism SNOMED: 459212695 Qualifiers: Qualified Codes: J18.9 - Pneumonia, unspecified organism (5) Person under investigation for COVID-19 ICD Codes: Z20.822 - Contact with and (suspected) exposure to COVID-19 SNOMED: 558346989 (6) Sepsis ICD Codes: A41.9 - Sepsis, unspecified organism SNOMED: 99340567 Qualifiers: Qualified Codes: A41.9 - Sepsis, unspecified organism Status: stable Assessment/Plan: cont ivf monitor renal fxn monitor LFTs not candidate for anticoag due to cirrhosis and bleeding risk dc planning once renal fxn improved abx Sudeep Kruse MD Jun 10, 2020 08:06
[2020-06-10 12:00] VITALS: BP 150/77
[2020-06-10 14:46] LABS: CALCIUM 7.6 MG/DL (8.5-10.1); CREATININE 1.8 MG/DL (0.55-1.30); POTASSIUM 4.5 MMOL/L (3.5-5.1)
[2020-06-10 16:00] VITALS: BP 148/80
--- NOTE | 2020-06-10 18:38 | NUR ---
NURSE HAND-OFF REPORT: Important Events on Shift: Continued ATB and given breathing txt. Patient Status: Stable Diet: Renal Pending Orders: Pending Results/Labs: Pending MD notification: Latest Vital Signs: Temperature 97.5 , Pulse 70 , B/P 148 /80 , Respiratory Rate 19 , O2 SAT 97 , Room Air, O2 Flow Rate 2.0 . Vital Sign Comment: EKG Rhythm: Sinus Rhythm Rhythm change?: N MD Notified?: Y -Dr. Marco Antonio KAYE Response: Message left await call Latest Cheung Fall Score: 45 Fall Risk: High Risk Safety Measures: Call light Within Reach, Bed Alarm Zone 1, Side Rails Side Rails x2, Bed position Low and Locked. Fall Precautions: Yellow Socks Patient Fall Education Report given to
[2020-06-10 20:00] VITALS: BP 162/83
--- NOTE | 2020-06-10 20:12 | NUR ---
NURSE NOTES: patient is A/O x3 and verbally responsive. No SOB or acute distress noted. No pain noted. Pt has a IV site located on LFA 20G running NS @ 100cc/hr. equipment monitor phototypesetting shows Afib @ 90's. Bed placed on lowest and locked and in lowest position. Call light placed within reach. Will continue plan of care.
[2020-06-11] VITALS: BP 153/86
[2020-06-11 04:00] VITALS: BP 165/82
[2020-06-11] MEDS: dilTIAZem HCl 30mg tab ORAL SCH (06:11)
[2020-06-11] MEDS: GlipiZIDE 5mg tab ORAL SCH (06:11)
[2020-06-11] MEDS: Piperacillin/Tazobactam 3.375 GM in NS 110 ML IVPB SCH (06:11)
[2020-06-11] MEDS: NovoLOG Insulin Flexpen SUBQ SCH (06:12)
[2020-06-11] MEDS ORDERED: CARDIZEM30 MG ORAL (07:09)
[2020-06-11] MEDS ORDERED: GLIPIZIDE5 MG ORAL (07:09)
[2020-06-11] MEDS ORDERED: FAMOTIDINE20 MG ORAL (07:09)
[2020-06-11] MEDS ORDERED: LOPRESSOR25 M1 ORAL (07:09)
[2020-06-11] MEDS ORDERED: Tubing IV Secondary IV ONE (07:47)
[2020-06-11 08:00] VITALS: BP 107/96
--- NOTE | 2020-06-11 08:14 | Discharge Summary ---
DATE OF ADMISSION: 05/31/2020 DATE OF DISCHARGE: 06/11/2020 ADMISSION DIAGNOSES: 1. Sepsis. 2. Pneumonia. 3. History of tuberculosis. 4. History of cirrhosis. 5. Hypertension. 6. Diabetes. 7. SVT. 8. Paroxysmal atrial fibrillation and flutter. DISCHARGE DIAGNOSES: 1. Sepsis. 2. Pneumonia. 3. History of tuberculosis. 4. History of cirrhosis. 5. Hypertension. 6. Diabetes. 7. SVT. 8. Paroxysmal atrial fibrillation and flutter. HOSPITAL COURSE: The patient is a 65-year-old male with history of cirrhosis status post TIPS, diabetes, hypertension presented with complaints of fevers, cough, and congestion. He was diagnosed with community-acquired pneumonia. He received broad-spectrum IV antibiotics. He had persistent fevers. His antibiotics were adjusted. Fevers did resolve. His hospital course was also complicated by intermittent episodes of atrial flutter. He also had acute renal failure. He was hydrated. On discharge, renal function was improving. He will be discharged home. He completed all of his antibiotics while in-house. He has been instructed to follow up with his PMD later this week for repeat of labs. DISCHARGE MEDICATIONS: Please see discharge medication list for discharge medications. DIET: Cardiac. ACTIVITY: Ad-kaylee. Sudeep Kruse M.D. DR: Katheryn JOB#: [id number] CC:
--- NOTE | 2020-06-11 08:55 | NUR ---
d/c instructions reviewed by phd intern tawana, patient awaiting ride from brothtavo wang in room this rn to accompany patient to lobby when brother arrives
[2020-06-11 08:59] VITALS: BP 107/96
--- NOTE | 2020-06-11 09:24 | NUR ---
patient escorted to [facility]elly, hugher kathleen requesting cab for ride home this rn found cab company online and called cab
== END 2020-06-11 09:07 | disposition home or self-care (01) | DRG 720 ==
LOC: EDBD 21:28 → EMR 22:00 → 2E 22:47 → EDBEDREQ 06-01 18:11 → 2E 06-02 17:41
DX: A41.9 Sepsis, unspecified organism (principal); J18.9 Pneumonia, unspecified organism; I10 Essential (primary) hypertension; I47.1 Supraventricular tachycardia; E87.1 Hypo-osmolality and hyponatremia; Z86.11 Personal history of tuberculosis; E11.9 Type 2 diabetes mellitus without complications; K74.60 Unspecified cirrhosis of liver; I48.91 Unspecified atrial fibrillation; I48.92 Unspecified atrial flutter; J98.4 Other disorders of lung; Z20.822 Contact with and (suspected) exposure to COVID-19; I81 Portal vein thrombosis
CPT/HCPCS: 36415; 71045; 71250; 74018; 76700; 76770; 80048; 80053; 80202; 81003; 82248; 82270; 82550; 82553; 82728; 82803; 82962; 83036; 83605; 83615; 83690; 83880; 84484; 85007; 85025; 85379; 85610; 85730; 86140; 87040; 87324; 93005; 94640; 96361; 96365; 96367; 99285; J1815; J7030; J8499

== ENCOUNTER 2020-06-19 08:54 | Emergency (ER) | payer OTHER ==
[~2020-06-19] VITALS: Ht 162.6 cm; Wt 65.8 kg
[~2020-06-19 08:54] MED LIST: BENAZEPRIL HCL10 MG ORAL; CARDIZEM30 MG ORAL; FAMOTIDINE20 MG ORAL; GLIMEPIRIDE2 MG ORAL; GLIPIZIDE5 MG ORAL; GLUCOPHAGE1000 MG ORAL; LOPRESSOR25 M1 ORAL; METFORMIN HCL500 M1 ORAL
--- NOTE | 2020-06-19 09:33 | Emergency Room Report ---
History of Present Illness General Chief Complaint: Edema Source: Patient Present Illness HPI 65-year-old male presents with abdominal distention x1 week. Denies pain. States he was recently discharged from the hospital. States he has "liver problems". Denies pain. Denies fevers or chills. Denies nausea or vomiting. No other aggravating relieving factors. Denies any other associated symptoms Allergies: Coded Allergies: No Known Allergies (Unverified , 05/31/20) COVID-19 Screening Contact w/high risk pt: No Experienced COVID-19 symptoms?: No Patient History Past Medical History: DM, HTN, AFib, other - cirrhosis Past Surgical History: none Pertinent Family History: none Social History: Denies: smoking, alcohol use, drug use Immunizations: UTD Reviewed Nursing Documentation: PMH: Agreed; PSxH: Agreed Nursing Documentation-PMH Past Medical History: No History, Except For Hx Cardiac Problems: Yes - afib/flutter, TB SVY Hx Hypertension: Yes Hx Diabetes: Yes Review of Systems All Other Systems: negative except mentioned in HPI Physical Exam Vital Signs Date Time Temp Pulse Resp B/P (MAP) Pulse Ox O2 Delivery O2 Flow Rate FiO2 06/19/20 09:16 98.4 88 20 165/71 (102) 98 Room Air Sp02 EP Interpretation: reviewed, normal General Appearance: no apparent distress, alert, GCS 15, non-toxic Head: normocephalic, atraumatic Eyes: bilateral eye normal inspection, bilateral eye PERRL ENT: hearing grossly normal, normal pharynx, no angioedema, normal voice Neck: full range of motion, supple/symm/no masses Respiratory: chest non-tender, lungs clear, normal breath sounds, speaking full sentences Cardiovascular #1: regular rate, rhythm, no edema Cardiovascular #2: 2+ carotid (R), 2+ carotid (L), 2+ radial (R), 2+ radial (L ), 2+ dorsalis pedis (R), 2+ dorsalis pedis (L) Gastrointestinal: normal bowel sounds, no guarding, no rebound, distended Rectal: deferred Genitourinary: normal inspection, no CVA tenderness Musculoskeletal: back normal, normal range of motion, gait/station normal, non- tender Neurologic: alert, motor strength/tone normal, oriented x3, sensory intact, responsive, speech normal Psychiatric: judgement/insight normal, memory normal, mood/affect normal, no suicidal/homicidal ideation Reflexes: 3+ bicep (R), 3+ bicep (L), 3+ tricep (R), 3+ tricep (L), 3+ knee (R), 3+ knee (L) Skin: other - Nursing notes Lymphatic: no adenopathy Medical Decision Making Diagnostic Impression: Primary Impression: Ascites Qualified Codes: R18.8 - Other ascites Additional Impressions: Cirrhosis Qualified Codes: K74.60 - Unspecified cirrhosis of liver; R18.8 - Other ascites Renal insufficiency ER Course 65-year-old presents withM lower abdominal and leg swelling DifferentialCHF, ascites, renal failure Placed on stretcher. After initial history physical exam reveals elderly male in no acute distress. Lungs clear. Abdomen distended. No guarding or rebound. I reviewed EMR. Patient recently admitted for sepsis and has history of A. fib, cirrhosis status post TIPS procedure. Labsno leukocytosis, hemoglobin/hematocrit stable, BUN/creatinine elevated, potassium 5.4, LFTs elevated EKGnormal sinus rhythm no acute ischemic changes interpreted by me Not in distress. Vital stable. Patient would benefit from paracentesis. Because of insurance patient will be transferred diagnosisascites, cirrhosis, renal insufficiency Patient transferred in serious condition Laboratory Tests Test 06/19/20 09:05 White Blood Count 7.7 K/UL (4.8-10.8) Red Blood Count 4.31 M/UL (4.70-6.10) L Hemoglobin 13.1 G/DL (14.2-18.0) L Hematocrit 42.2 % (42.0-52.0) Mean Corpuscular Volume 98 FL (80-99) Mean Corpuscular Hemoglobin 30.5 PG (27.0-31.0) Mean Corpuscular Hemoglobin Concent 31.1 G/DL (32.0-36.0) L Red Cell Distribution Width 16.4 % (11.6-14.8) H Platelet Count 127 K/UL (150-450) L Mean Platelet Volume 8.4 FL (6.5-10.1) Neutrophils (%) (Auto) 69.0 % (45.0-75.0) Lymphocytes (%) (Auto) 14.2 % (20.0-45.0) L Monocytes (%) (Auto) 7.7 % (1.0-10.0) Eosinophils (%) (Auto) 5.4 % (0.0-3.0) H Basophils (%) (Auto) 3.6 % (0.0-2.0) H Prothrombin Time 13.7 SEC (9.30-11.50) H Prothromb Time International Ratio 1.3 (0.9-1.1) H Activated Partial Thromboplast Time 29 SEC (23-33) Urine Color Yellow Urine Appearance Clear Urine pH 5 (4.5-8.0) Urine Specific [place] 1.020 (1.005-1.035) Urine Protein 2+ (NEGATIVE) H Urine Glucose (UA) Negative (NEGATIVE) Urine Ketones Negative (NEGATIVE) Urine Blood 5+ (NEGATIVE) H Urine Nitrite Negative (NEGATIVE) Urine Bilirubin Negative (NEGATIVE) Urine Urobilinogen Normal MG/DL (0.0-1.0) Urine Leukocyte Esterase 1+ (NEGATIVE) H Urine RBC 5-10 /HPF (0 - 0) H Urine WBC 2-4 /HPF (0 - 0) Urine Squamous Epithelial Cells None /LPF (NONE/OCC) Urine Bacteria Few /HPF (NONE) Urine Yeast Occasional /HPF (NONE) H Sodium Level 140 MMOL/L (136-145) Potassium Level 5.4 MMOL/L (3.5-5.1) H Chloride Level 109 MMOL/L (98-107) H Carbon Dioxide Level 24 MMOL/L (21-32) Anion Gap 7 mmol/L (5-15) Blood Urea Nitrogen 52 mg/dL (7-18) H Creatinine 2.8 MG/DL (0.55-1.30) H Estimat Glomerular Filtration Rate 22.7 mL/min (>60) Glucose Level 155 MG/DL (74-106) H Calcium Level 8.3 MG/DL (8.5-10.1) L Total Bilirubin 1.3 MG/DL (0.2-1.0) H Direct Bilirubin 0.4 MG/DL (0.0-0.3) H Aspartate Amino Transf (AST/SGOT) 37 U/L (15-37) Alanine Aminotransferase (ALT/SGPT) 46 U/L (12-78) Alkaline Phosphatase 146 U/L (46-116) H Ammonia 37 umol/L (11-32) H Total Protein 7.6 G/DL (6.4-8.2) Albumin 2.2 G/DL (3.4-5.0) L Globulin 5.4 g/dL Albumin/Globulin Ratio 0.4 (1.0-2.7) L Lipase 560 U/L (73-393) H EKG Diagnostic Results Rate: normal Rhythm: NSR ST Segments: no acute changes ASA given to the pt in ED: No Rhythm Strip Diag. Results EP Interpretation: yes Rhythm: NSR, no PVC's, no ectopy Last Vital Signs Date Time Temp Pulse Resp B/P (MAP) Pulse Ox O2 Delivery O2 Flow Rate FiO2 06/19/20 09:16 98.4 88 20 165/71 (102) 98 Room Air Status: improved Disposition: SHORT-TERM HOSP Condition: Serious Brooks Dent MD Jun 19, 2020 09:33
[2020-06-19 09:39] VITALS: BP 165/71
[2020-06-19 10:05] LABS: BASOPHILS % (AUTO) 3.6 % (0.0-2.0); EOSINOPHILS % (AUTO) 5.4 % (0.0-3.0); HEMATOCRIT 42.2 % (42.0-52.0); HEMOGLOBIN 13.1 G/DL (14.2-18.0); LYMPHOCYTES % (AUTO) 14.2 % (20.0-45.0); MEAN CORPUSCULAR VOLUME 98 FL (80-99); MONOCYTES % (AUTO) 7.7 % (1.0-10.0); PLATELET COUNT 127 K/UL (150-450); RED BLOOD COUNT 4.31 M/UL (4.70-6.10); RED CELL DISTRIBUTION WIDTH 16.4 % (11.6-14.8); WHITE BLOOD COUNT 7.7 K/UL (4.8-10.8)
[2020-06-19 10:09] LABS: CALCIUM 8.3 MG/DL (8.5-10.1); CREATININE 2.8 MG/DL (0.55-1.30); POTASSIUM 5.4 MMOL/L (3.5-5.1)
[2020-06-19 10:17] LABS: ALBUMIN 2.2 G/DL (3.4-5.0); ALBUMIN/GLOBULIN RATIO 0.4 (1.0-2.7); BILIRUBIN,DIRECT 0.4 MG/DL (0.0-0.3); BILIRUBIN,TOTAL 1.3 MG/DL (0.2-1.0)
[2020-06-19 10:20] LABS: APPEARANCE,URINE CLEAR; BILIRUBIN, URINE NEGATIVE (NEGATIVE); GLUCOSE, URINE (UA) NEGATIVE (NEGATIVE); KETONES,URINE NEGATIVE (NEGATIVE); LEUKOCYTE ESTERASE ,URINE 1+ (NEGATIVE); NITRITE,URINE NEGATIVE (NEGATIVE); PH,URINE 5 (4.5-8.0); PROTEIN,URINE 2+ (NEGATIVE); UROBILINOGEN,URINE NORMAL MG/DL (0.0-1.0)
[2020-06-19 10:23] LABS: COLOR,URINE YELLOW
[2020-06-19 10:45] LABS: INR 1.3 (0.9-1.1)
[2020-06-19 11:21] VITALS: BP 133/60
--- NOTE | 2020-06-19 13:19 | NUR ---
Patient is reporting that his sister does not want him to be transferred to [facility] and he does not want to stay either. Reported to charge nurse and MD. Registration to room to speak with patient re:decison to leave. Patient still persists on leaving against medical advice. Per patient: " I am waiting on my sister, she is on the way to pick me up!"
--- NOTE | 2020-06-19 13:21 | NUR ---
pt arrived c/o distended abd. pt states he was recently released from hospital, went home, & now abd bloating. pt presents with distended abd, pitting edema in bilateral lower extremities. pt has skin tear on RLE after fall. pt denies hitting head. no LOC, no dizziness, no deformities noted on head. notified. pt placed on continuous cardiac/O2 monitor. IV inserted, blood drawn & sent to lab. ekg performed. COVID antigen performed for pt transfer. 1240: called pt sister to inform of pt transfer, per pt request. no answer.
--- NOTE | 2020-06-19 14:12 | NUR ---
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 pt educated regarding risks of leaving against medical advice. pt refusing to receive medical care. IV removed, last set of vitals obtained. pt A&OX4, ambulatory, stable.
[2020-06-19 14:14] VITALS: BP 149/63
--- NOTE | 2020-06-19 14:14 | NUR ---
AMA: SEE AMA FORM.
== END 2020-06-19 14:07 | disposition left against medical advice (07) ==
LOC: EMR 09:44
DX: R18.8 Other ascites (principal); K74.60 Unspecified cirrhosis of liver; N28.9 Disorder of kidney and ureter, unspecified; E11.9 Type 2 diabetes mellitus without complications; I10 Essential (primary) hypertension
CPT/HCPCS: 36415; 80053; 81003; 82140; 82248; 83690; 85025; 85610; 85730; 86850; 86900; 86901; 87086; 93005; 99285